=== PATIENT | male | born 1955 | race Caucasian/White ===

== ENCOUNTER 2017-07-22 18:40 | Inpatient (IN) ==
[2017-07-22] MEDS ORDERED: Ipratropium/Albuterol Neb 3 ML IH ONE (18:48)
[2017-07-22] MEDS ORDERED: methylPREDNISolone 125 MG/2 ML VIAL IVP ONE (18:48)
--- NOTE | 2017-07-22 19:00 | Emergency Department Note ---
Disposition Clinical Impression: NSTEMI (non-ST elevated myocardial infarction) Congestive heart failure Qualifiers: Congestive heart failure type: unspecified congestive heart failure type Congestive heart failure chronicity: acute Qualified Code(s): I50.9 - Heart failure, unspecified Disposition: Admitted As Inpatient Condition: Fair Referrals: Calixto Diego MD [Primary Care Provider] - Forms: ED Satisfaction Letter General Adult HPI - General Chief complaint: ED Shortness of Breath/Dyspnea Stated complaint: TAYA Time Seen by Provider: 07/22/17 18:47 Nursing Notes Reviewed: Yes Vital Signs Reviewed: Yes Course Vital Signs Temperature 98 F 07/22/17 19:24 Pulse Rate 102 07/22/17 19:24 Respiratory Rate 16 07/22/17 19:24 Blood Pressure 154/99 07/22/17 19:24 O2 Sat by Pulse Oximetry 98 07/22/17 19:24 Temperature 98 F 07/22/17 19:24 Pulse Rate 102 07/22/17 19:24 Respiratory Rate 24 07/22/17 20:11 Blood Pressure 154/99 07/22/17 19:24 O2 Sat by Pulse Oximetry 99 07/22/17 20:11 Oxygen Delivery Oxygen Delivery Nasal Cannula Medical Decision Making - MDM Narrative Medical decision making narrative: This documentation is done with the assistance of Dragon dictation. Despite efforts to ensure accuracy, there may be inaccuracies in handle rounder operator or spelling and typographical errors. I examined this patient and my medical decision-making was reviewed with the Resident Physician. I agree with the documented findings, disposition and treatment plan as described except to the extent set forth below. Patient was seen and evaluated on arrival with EMS and Dr. Angel, I agree with his evaluation and management plan, supervised the care of the patient's stay. Patient presents today with dyspnea, medics state they arrived on scene and gave him albuterol treatment he sounded much better sets him up in the 90s. He started oxygen here still some wheezing in the bases. He denies any chest pain at this time. No calf pain no edema. I did do a chest x-ray EKG and a workup and reassess. He may need admission. He is in agreement with this plan. Chest X-Ray 07/22/17 18:48 IMPRESSION: Multifocal pneumonia versus edema. D/ / Silvia Goss MD / Silvia Goss MD Interpreting Provider: Silvia Goss MD 2000 hrs. colon with his symptoms I do not think this is pneumonia. It looks more like this is some pulmonary edema. His troponin is elevated. He denies any chest pain. His EKG compared to his last EKG which several years ago shows no acute changes but there is low voltage throughout. I am worried that he did have an ischemic episode and now has caused some pulmonary edema. I started him on aspirin and bring him into the hospital. Also start him on BiPAP to see how he tolerates that for his wheezing and pulmonary edema. He is in agreement with this plan. - Lab Data Result diagrams: 07/22/17 19:17 07/22/17 19:17 Lab Results 07/22/17 07/22/17 07/22/17 Range/Units 19:17 19:17 19:17 WBC 6.5 (4.3-11.1) K/mcL RBC 4.78 (4.19-5.50) M/mcL Hgb 14.3 (12.9-16.9) g/dL Hct 44.1 (37.5-50.1) % MCV 92.3 (83.0-100.0) fL MCH 29.9 (28.0-33.3) pg MCHC 32.4 (31.6-35.5) g/dL RDW 13.7 (11.5-14.5) % Plt Count 129 L (140-400) K/mcL MPV 9.5 (9.4-12.4) fL Immature Gran % 0.8 (0-4) % Seg Neutrophils % 67.7 % Lymphocytes % 17.4 % Monocytes % 9.4 % Eosinophils % 3.9 % Basophils % 0.8 % Neutrophils # 4.4 (1.6-8.9) K/mcL Lymphocytes # 1.1 (0.6-4.6) K/mcL Monocytes # 0.6 (0.0-1.3) K/mcL Eosinophils # 0.3 (0.0-0.6) K/mcL Basophils # 0.1 (0.0-0.2) K/mcL PT 12.9 H (9.4-12.1) Seconds INR 1.2 APTT 30.3 (26.0-36.0) Seconds D-Dimer 794 H (0-500) ng/mLFEU Sodium 134 L (136-145) mEq/L Potassium 4.1 (3.5-5.1) mEq/L Chloride 102 (98-107) mEq/L Carbon Dioxide 25 (23-29) mEq/L BUN 13 (8-23) mg/dL Creatinine 1.00 (0.70-1.30) mg/dL Est GFR ( Amer) > 60 (> 60) Est GFR (Non-Af Amer) > 60 (> 60) BUN/Creatinine Ratio 13 (6-26) Glucose 132 H (70-105) mg/dL Calculated Osmolality 280 (280-300) Lactic Acid (0.5-2.2) mmol/L Calcium 8.7 (8.6-10.3) mg/dL Troponin I (< 0.04) ng/mL B-Natriuretic Peptide (Less than 100) pg/mL 07/22/17 07/22/17 07/22/17 Range/Units 19:17 19:17 19:17 WBC (4.3-11.1) K/mcL RBC (4.19-5.50) M/mcL Hgb (12.9-16.9) g/dL Hct (37.5-50.1) % MCV (83.0-100.0) fL MCH (28.0-33.3) pg MCHC (31.6-35.5) g/dL RDW (11.5-14.5) % Plt Count (140-400) K/mcL MPV (9.4-12.4) fL Immature Gran % (0-4) % Seg Neutrophils % % Lymphocytes % % Monocytes % % Eosinophils % % Basophils % % Neutrophils # (1.6-8.9) K/mcL Lymphocytes # (0.6-4.6) K/mcL Monocytes # (0.0-1.3) K/mcL Eosinophils # (0.0-0.6) K/mcL Basophils # (0.0-0.2) K/mcL PT (9.4-12.1) Seconds INR APTT (26.0-36.0) Seconds D-Dimer (0-500) ng/mLFEU Sodium (136-145) mEq/L Potassium (3.5-5.1) mEq/L Chloride (98-107) mEq/L Carbon Dioxide (23-29) mEq/L BUN (8-23) mg/dL Creatinine (0.70-1.30) mg/dL Est GFR ( Amer) (> 60) Est GFR (Non-Af Amer) (> 60) BUN/Creatinine Ratio (6-26) Glucose (70-105) mg/dL Calculated Osmolality (280-300) Lactic Acid 1.4 (0.5-2.2) mmol/L Calcium (8.6-10.3) mg/dL Troponin I 1.35 H* (< 0.04) ng/mL B-Natriuretic Peptide 290 H (Less than 100) pg/mL
[2017-07-22 19:25] LABS: Basophils # 0.1 K/mcL (0.0-0.2); Basophils % 0.8 %; Eosinophils # 0.3 K/mcL (0.0-0.6); Eosinophils % 3.9 %; Hematocrit 44.1 % (37.5-50.1); Hemoglobin 14.3 g/dL (12.9-16.9); Immature Granulocytes % 0.8 % (0-4); Lymphocytes # 1.1 K/mcL (0.6-4.6); Lymphocytes % 17.4 %; Mean Corpuscular HGB Conc 32.4 g/dL (31.6-35.5); Mean Corpuscular Hemoglobin 29.9 pg (28.0-33.3); Mean Corpuscular Volume 92.3 fL (83.0-100.0); Mean Platelet Volume 9.5 fL (9.4-12.4); Monocytes # 0.6 K/mcL (0.0-1.3); Monocytes % 9.4 %; Neutrophils # 4.4 K/mcL (1.6-8.9); Platelet Count 129 K/mcL (140-400); Red Blood Count 4.78 M/mcL (4.19-5.50); Red Cell Distribution Width 13.7 % (11.5-14.5); Segmented Neutrophils % 67.7 %
[2017-07-22 19:32] LABS: INR 1.2; Prothrombin Time 12.9 Seconds (9.4-12.1)
[2017-07-22 19:34] LABS: Activated Partial Thrombo Time 30.3 Seconds (26.0-36.0)
[2017-07-22 19:39] LABS: BUN/Creatinine Ratio 13 (6-26); Blood Urea Nitrogen 13 mg/dL (8-23); Calcium 8.7 mg/dL (8.6-10.3); Carbon Dioxide 25 mEq/L (23-29); Chloride 102 mEq/L (98-107); Glucose 132 mg/dL (70-105); Osmolality,Calculated 280 (280-300); Potassium 4.1 mEq/L (3.5-5.1); Sodium 134 mEq/L (136-145); eGFR For African Americans > 60 (> 60); eGFR For Non-African Americans > 60 (> 60)
--- NOTE | 2017-07-22 19:48 | Emergency Department Note ---
Disposition Clinical Impression: NSTEMI (non-ST elevated myocardial infarction) Congestive heart failure Qualifiers: Congestive heart failure type: unspecified congestive heart failure type Congestive heart failure chronicity: acute Qualified Code(s): I50.9 - Heart failure, unspecified Disposition: Admitted As Inpatient Condition: Fair Referrals: Calixto Diego MD [Primary Care Provider] - Forms: ED Satisfaction Letter Time of Disposition: 20:41 SOB HPI - General Chief Complaint: ED Shortness of Breath/Dyspnea Stated Complaint: TAYA Time Seen by Provider: 07/22/17 18:47 Source: patient, EMS Mode of arrival: EMS Limitations: no limitations Nursing Notes Reviewed: Yes Vital Signs Reviewed: Yes - History of Present Illness Patient presents to the ED via EMS and was seen and evaluated in the hallway due to the bed, not being available. Patient was reportedly having shortness of breath over the last few days that is gradually worsening. Has no history of COPD, but was a former smoker for many years and quit about 10 years ago. States he is not on any maintenance medications for this. No history of coronary artery disease. States that his breathing got significantly worse today and was having exertional dyspnea. Also complaining of edema in his legs that is no worse than usual. It has been slowly increasing over time. He denies any chest pain, abdominal pain, vomiting , diaphoresis, or other concerns. He states that the breathing treatment EMS gave him helped his breathing out. He has been coughing some but no fever. No productive sputum All systems ED: reviewed and negative except as stated. Constitutional: Denies: fever Cardiovascular: Reports: dyspnea on exertion, edema. Denies: chest pain Respiratory: Reports: cough, dyspnea. Denies: sputum production Gastrointestinal: Denies: abdominal pain Neurological: Denies: headache Past Medical History - Past Medical History Attestation: Yes The following information was validated with the patient. Source: patient Physical Exam - General Limitations: no limitations General appearance: alert, in distress (resp) - Head Head exam: atraumatic, normocephalic, normal inspection - Eye Eye exam: Present: normal appearance, PERRL, EOMI - ENT ENT exam: normal exam, normal oropharynx, mucous membranes moist - Chest Chest inspection: Present: normal inspection, symmetric chest wall rise - Respiratory Respiratory exam: Present: respiratory distress (mild, but patient is very obese , he states he needs to sit up, RR improved when sat up ), other (rales). Absent: normal lung sounds bilaterally, wheezes - Cardiovascular Cardiovascular exam: Present: normal rhythm, tachycardia - Abdominal Exam Abdominal exam: Present: soft, Non-Tender. Absent: tenderness, distention, guarding, rebound, rigidity - Extremities Exam Extremities exam: Present: normal inspection, full ROM, pedal edema. Absent: tenderness - Neurological Exam Neurological exam: Present: alert, oriented X3 - Psychiatric Psychiatric exam: Present: normal affect, normal mood - Skin Skin exam: Present: warm, dry, intact, normal color Course Course Narrative: Patient presenting with shortness of breath. Concerning over CHF versus COPD. We will also get an EKG and cardiac workup. Patient will need to be admitted - Reevaluation(s) Reevaluation #1: Patient has elevated troponin and BNP. Pulmonary edema on chest x-ray. Concern that he may have infarcted recently and is now in heart failure. We will place him on BiPAP and admit to 2 N. His EKG does not have acute ischemic changes. However, we will repeat this if he develops any chest pain or change in his symptoms. ASA given. Vital Signs Temperature 98 F 07/22/17 19:24 Pulse Rate 102 07/22/17 19:24 Respiratory Rate 16 07/22/17 19:24 Blood Pressure 154/99 07/22/17 19:24 O2 Sat by Pulse Oximetry 98 07/22/17 19:24 Temperature 98 F 07/22/17 19:24 Pulse Rate 102 07/22/17 19:24 Respiratory Rate 24 07/22/17 20:11 Blood Pressure 154/99 07/22/17 19:24 O2 Sat by Pulse Oximetry 99 07/22/17 20:11 Oxygen Delivery Oxygen Delivery Nasal Cannula Shortness of Breath/Dyspnea - Lab Data Result diagrams: 07/22/17 19:17 07/22/17 19:17 Lab Results 07/22/17 07/22/17 07/22/17 Range/Units 19:17 19:17 19:17 WBC 6.5 (4.3-11.1) K/mcL RBC 4.78 (4.19-5.50) M/mcL Hgb 14.3 (12.9-16.9) g/dL Hct 44.1 (37.5-50.1) % MCV 92.3 (83.0-100.0) fL MCH 29.9 (28.0-33.3) pg MCHC 32.4 (31.6-35.5) g/dL RDW 13.7 (11.5-14.5) % Plt Count 129 L (140-400) K/mcL MPV 9.5 (9.4-12.4) fL Immature Gran % 0.8 (0-4) % Seg Neutrophils % 67.7 % Lymphocytes % 17.4 % Monocytes % 9.4 % Eosinophils % 3.9 % Basophils % 0.8 % Neutrophils # 4.4 (1.6-8.9) K/mcL Lymphocytes # 1.1 (0.6-4.6) K/mcL Monocytes # 0.6 (0.0-1.3) K/mcL Eosinophils # 0.3 (0.0-0.6) K/mcL Basophils # 0.1 (0.0-0.2) K/mcL PT 12.9 H (9.4-12.1) Seconds INR 1.2 APTT 30.3 (26.0-36.0) Seconds D-Dimer 794 H (0-500) ng/mLFEU Sodium 134 L (136-145) mEq/L Potassium 4.1 (3.5-5.1) mEq/L Chloride 102 (98-107) mEq/L Carbon Dioxide 25 (23-29) mEq/L BUN 13 (8-23) mg/dL Creatinine 1.00 (0.70-1.30) mg/dL Est GFR ( Amer) > 60 (> 60) Est GFR (Non-Af Amer) > 60 (> 60) BUN/Creatinine Ratio 13 (6-26) Glucose 132 H (70-105) mg/dL Calculated Osmolality 280 (280-300) Lactic Acid (0.5-2.2) mmol/L Calcium 8.7 (8.6-10.3) mg/dL Troponin I (< 0.04) ng/mL B-Natriuretic Peptide (Less than 100) pg/mL 07/22/17 07/22/17 07/22/17 Range/Units 19:17 19:17 19:17 WBC (4.3-11.1) K/mcL RBC (4.19-5.50) M/mcL Hgb (12.9-16.9) g/dL Hct (37.5-50.1) % MCV (83.0-100.0) fL MCH (28.0-33.3) pg MCHC (31.6-35.5) g/dL RDW (11.5-14.5) % Plt Count (140-400) K/mcL MPV (9.4-12.4) fL Immature Gran % (0-4) % Seg Neutrophils % % Lymphocytes % % Monocytes % % Eosinophils % % Basophils % % Neutrophils # (1.6-8.9) K/mcL Lymphocytes # (0.6-4.6) K/mcL Monocytes # (0.0-1.3) K/mcL Eosinophils # (0.0-0.6) K/mcL Basophils # (0.0-0.2) K/mcL PT (9.4-12.1) Seconds INR APTT (26.0-36.0) Seconds D-Dimer (0-500) ng/mLFEU Sodium (136-145) mEq/L Potassium (3.5-5.1) mEq/L Chloride (98-107) mEq/L Carbon Dioxide (23-29) mEq/L BUN (8-23) mg/dL Creatinine (0.70-1.30) mg/dL Est GFR ( Amer) (> 60) Est GFR (Non-Af Amer) (> 60) BUN/Creatinine Ratio (6-26) Glucose (70-105) mg/dL Calculated Osmolality (280-300) Lactic Acid 1.4 (0.5-2.2) mmol/L Calcium (8.6-10.3) mg/dL Troponin I 1.35 H* (< 0.04) ng/mL B-Natriuretic Peptide 290 H (Less than 100) pg/mL S.B.A.R. - S.B.A.R. Situation: Demographics, MOA Background: Presenting Complaint, Relevant PMH, Meds, & Allergies Assessment: Vital Signs, Course and respsone to treatment, Exam Concerns, Patient/Family Expectation, Pertinant Lab Results, Outstanding Labs Recommendation: Barrier(s) to disposition, Recommendation based on pending studies, treatments, or consults S.B.A.R. Report Given to: Dr. Kacharmaine Mccabe Repor Time: 20:41
[2017-07-22] MEDS ORDERED: Aspirin 325 MG TABLET PO ONE (19:54)
[2017-07-22] MEDS ORDERED: Furosemide 40 MG/4 ML VIAL IVP ONE (22:24)
[2017-07-22] MEDS ORDERED: Nitroglycerin 25 MG/250 ML INFUS..BTL IVC SCH (23:00)
[2017-07-22] MEDS ORDERED: D5% in Water 1,000 ML IVC PRN (23:02)
[2017-07-22] MEDS ORDERED: *HR* Dextrose 50 % in Water (Syg) 50 ML SYRINGE IVP PRN (23:02)
[2017-07-22] MEDS ORDERED: Dextrose Gel 15 GM/37.5 ML TUBE PO PRN ×2 (23:02)
[2017-07-22] MEDS ORDERED: Naloxone 0.4 MG/ML INJ IVP PRN (23:04)
[2017-07-22] MEDS ORDERED: Acetaminophen 325 MG TABLET PO PRN (23:04)
[2017-07-22] MEDS ORDERED: *HR* Morphine 2 MG/ML SYRINGE IVP PRN (23:04)
[2017-07-22] MEDS ORDERED: Ondansetron 4 MG/2 ML VIAL IVP PRN (23:04)
--- NOTE | 2017-07-22 23:13 | Internal Med History&Physical ---
Date of Encounter: 07/22/17 Time of Encounter: 23:09 Assessment and Plan (1) Congestive heart failure Current visit: Yes Status: Acute - SOB for 2 days, chest x-ray acute pulmonary edema. -Was placed on BiPAP, received 80 mg IV Lasix. - Monitor I's and O's. BiPAP as needed. Qualifiers: Congestive heart failure type: unspecified congestive heart failure type Congestive heart failure chronicity: acute Qualified Code(s): I50.9 - Heart failure, unspecified (2) NSTEMI (non-ST elevated myocardial infarction) Current visit: Yes Status: Acute - Troponin 1.32, EKG Q wave in leads V1 through V6. - Received aspirins 325 mg, on nitro drip and heparin drip. - Metoprolol to control heart rate. - Cardiology consulted, planning cardiac catheter in the morning. - Admitted to ICU, NPO. (3) HTN (hypertension) Current visit: No Status: Chronic - BP elevated at ED. On nitro drip titrated to keep SBP less than 120. Qualifiers: Hypertension type: essential hypertension Qualified Code(s): I10 - Essential (primary) hypertension (4) Diabetes 1.5, managed as type 1 Current visit: No Status: Chronic - Insulin sliding scale. Internal Medicine - H&P: HPI Admitted From: Emergency Dept Plans for Post Hospital Care: Home History of present illness: Mr. Crespo is a 62 year old male with past medical history for diabetes and hypertension who presented to the ED for acute onset of shortness of breath for 2 days. Patient was reportedly having shortness of breath over the last few days that is gradually worsening. Has no history of COPD, but was a former smoker for many years and quit about 10 years ago. States he is not on any maintenance medications for this. No history of coronary artery disease. States that his breathing got significantly worse today and was having exertional dyspnea. Also complaining of edema in his legs that is worse than usual. It has been slowly increasing over time. He denies any chest pain, abdominal pain, vomiting , diaphoresis, or other concerns. He states that the breathing treatment EMS gave him helped his breathing out. He has been coughing some but no fever. No productive sputum. At the ED, he was tachycardia with heart rate 102. Labs reviewed elevated troponin at 1.32. Chest x-ray showed acute pulmonary edema. He was placed on BiPAP due to respiratory distress. He received 80 mg Lasix IV, heparin drip, and Nitro drip. Cardiology was consulted and was planning to do a cardiac catheter in the morning. He will be admitted to the ICU for further monitoring. Past Med Surg Social Fam HX - Past Medical History Medical history: diabetes, hypertension Psychiatric history: no psych history - Social History Smoking Status: Former smoker Smokeless Tobacco Status: No Alcohol use: none Drug use: none Internal Medicine - H&P: Meds 3 Allergy/AdvReac Type Severity Reaction Status Date / Time No Known Allergies Allergy Verified 07/22/17 21:06 All Systems PM: A 10-system review of systems was performed and is negative for pertinent findings except as documented above in the HPI. Review of systems: REVIEW OF SYSTEMS: CONSTITUTIONAL: No weight loss, fever, chills, weakness or fatigue. HEENT: Eyes: No visual loss, blurred vision, double vision or yellow sclerae. Ears, Nose, Throat: No hearing loss, sneezing, congestion, runny nose or sore throat. SKIN: No rash or itching. CARDIOVASCULAR: see HPI. RESPIRATORY: see HPI. GASTROINTESTINAL: No anorexia, nausea, vomiting or diarrhea. No abdominal pain or blood. GENITOURINARY: No dysuria, urgency, or frequency. NEUROLOGICAL: No headache, dizziness, syncope, paralysis, ataxia, numbness or tingling in the extremities. No change in bowel or bladder control. MUSCULOSKELETAL: No muscle, back pain, joint pain or stiffness. HEMATOLOGIC: No anemia, bleeding or bruising. LYMPHATICS: No enlarged nodes. No history of splenectomy. PSYCHIATRIC: No history of depression or anxiety. ENDOCRINOLOGIC: No reports of sweating, cold or heat intolerance. No polyuria or polydipsia. - Constitutional Vitals: Temp Pulse Resp BP Pulse Ox 98 F 102 24 154/99 99 07/22/17 19:24 07/22/17 19:24 07/22/17 20:11 07/22/17 19:24 07/22/17 20:11 Exam: PHYSICAL EXAMINATION: GENERAL APPEARANCE: The patient is alert, oriented and in no acute distress. HEENT: Head is normocephalic. The sinuses are nontender. Pupils are equal and reactive. The nares are patent. Oropharynx clear without lesions. NECK: Supple without lymphadenopathy. HEART: Regular rate and rhythm. LUNGS: diffuse bilateral crackles. ABDOMEN: Soft, nontender, nondistended with good bowel sounds heard. Inguinal area is normal. EXTREMITIES: Without cyanosis, clubbing or edema. NEUROLOGICAL: Gross nonfocal. SKIN: Warm and dry without any rash. Internal Med - H&P Results - Labs CBC & Chem 7: 07/22/17 19:17 07/22/17 19:17
[2017-07-22] MEDS ORDERED: *HR* Heparin 5,000 UNIT/ML VIAL IVP PRN (23:57)
[2017-07-23] MEDS: Heparin 25,000 UNIT/500 ML D5W 25,000 UNIT/500 ML BAG IVC SCH ×2 (00:15→15:42)
[2017-07-23 00:37] LABS: Basophils # 0.1 K/mcL (0.0-0.2); Basophils % 0.7 %; Eosinophils # 0.1 K/mcL (0.0-0.6); Eosinophils % 0.7 %; Hematocrit 46.3 % (37.5-50.1); Hemoglobin 15.2 g/dL (12.9-16.9); Immature Granulocytes % 0.8 % (0-4); Lymphocytes # 0.5 K/mcL (0.6-4.6); Lymphocytes % 6.6 %; Mean Corpuscular HGB Conc 32.8 g/dL (31.6-35.5); Mean Corpuscular Hemoglobin 30.3 pg (28.0-33.3); Mean Corpuscular Volume 92.4 fL (83.0-100.0); Mean Platelet Volume 9.8 fL (9.4-12.4); Monocytes # 0.1 K/mcL (0.0-1.3); Monocytes % 1.4 %; Neutrophils # 6.9 K/mcL (1.6-8.9); Platelet Count 149 K/mcL (140-400); Red Blood Count 5.01 M/mcL (4.19-5.50); Segmented Neutrophils % 89.8 %
[2017-07-23 00:57] LABS: Alanine Aminotransferase 17 Units/L (7-52); Albumin 3.6 g/dL (3.5-5.7); Albumin/Globulin Ratio 0.9 (1.1-2.2); Alkaline Phosphatase 73 Units/L (34-104); Aspartate Amino Transferase 22 Units/L (13-39); BUN/Creatinine Ratio 13 (6-26); Blood Urea Nitrogen 15 mg/dL (8-23); Carbon Dioxide 23 mEq/L (23-29); Chloride 98 mEq/L (98-107); Globulin 4.2 g/dL (2.4-3.5); Glucose 257 mg/dL (70-105); Osmolality,Calculated 282 (280-300); Potassium 4.8 mEq/L (3.5-5.1); Sodium 131 mEq/L (136-145); Total Protein 7.8 g/dL (6.4-8.9); eGFR For African Americans > 60 (> 60); eGFR For Non-African Americans > 60 (> 60)
[2017-07-23] MEDS: Insulin LISPRO 300 UNITS/3 ML VIAL SQ SCH ×4 (01:47→20:46)
[2017-07-23] MEDS: Metoclopramide 10 MG/2 ML VIAL IVP SCH ×2 (01:47→06:24)
[2017-07-23] MEDS ORDERED: Pantoprazole 40 MG VIAL IVPB SCH (06:30)
[2017-07-23] MEDS: *HR* Heparin 5,000 UNIT/ML VIAL IVP PRN ×2 (07:48→15:05)
[2017-07-23] MEDS ORDERED: Furosemide 40 MG/4 ML VIAL IVP ONE (07:52)
[2017-07-23] MEDS ORDERED: Furosemide 40 MG/4 ML VIAL IVP SCH (08:00)
[2017-07-23] MEDS: Aspirin Enteric Coated 81 MG Tablet PO SCH (08:03)
--- NOTE | 2017-07-23 08:09 | Cardiology Consult Note ---
<Pilo Ramirez - Last Filed: 07/23/17 08:34> Date of Encounter: 07/23/17 Time of Encounter: 08:07 Assessment and Plan (1) NSTEMI (non-ST elevated myocardial infarction) Current Visit: Yes Status: Acute Troponin elevated up to 1.34. EKG shows ST with anterior lateral [place] of undetermined age. New finding compared to last EKG in 2007. Denies chest pain. Sudden onset of dyspnea. D-dimer also elevated. Recommend CTA to r/o PE. Patient fairly immobile d/t chronic back pain. Noted to be tachycardic. Check TTE. Agree with heparin and NTG GTT. Asa, statin, and bb. Plan for possible LHC once respiratory status improves if CTA negative for PE. (2) Congestive heart failure Current Visit: Yes Status: Acute Suspected CHF. Fluid overload on exam. BNP mildly elevated. Check TTE. Give 80 mg IV lasix now. Patient reports being on two diuretics at home. Nurse to clarify home medications. Low sodium diet. Daily weights. Strict I&O. Qualifiers: Congestive heart failure type: unspecified congestive heart failure type Congestive heart failure chronicity: acute Qualified Code(s): I50.9 - Heart failure, unspecified Discussion w patient/family: The assessment and plan as outlined above was discussed with the patient and/or family members who expressed understanding and agreement. All questions were answered. Thank you for involving us in the care of your patient. Please call with any questions. History of Present Illness Consult date: 07/23/17 Requesting physician: Catia Angel Consult reason: NSTEMI Chief complaint: Dyspnea History of present illness: Mr. Crespo is a 62 year old male with a past medical history of DM type II, HTN , and morbid obesity. He presents with sudden onset of dyspnea two days ago that has progressively worsened. He admits to cough productive of clear to yellow sputum. Denies weight gain or new edema. Reports that he always has to sit up when he sleeps. Denies chest pain. Denies fever or chills. Cardiology consulted for CHF and NSTEMI. Patient denies history of CAD. Work-up revealed elevated troponin up to 1.35. CXR showed multifocal pneumonia verses pulmonary edema, BNP was 290 and d-dimer 794. He reports limited mobility due to chronic back pain. Past Med Surg Social Fam HX - Past Medical History Medical history: diabetes, hypertension Psychiatric history: no psych history - Social History Smoking Status: Former smoker Smokeless Tobacco Status: No Alcohol use: none Drug use: none Medications and Allergies 3 Allergy/AdvReac Type Severity Reaction Status Date / Time No Known Allergies Allergy Verified 07/22/17 21:06 All Systems Review: A 10-system review of systems was performed and is negative for pertinent findings except as documented above in the HPI. Physical Examination Vital Signs, Last 4 Hours Temp Pulse Resp BP Pulse Ox 07/23/17 07:55 97.5 F L 102 22 155/99 92 07/23/17 06:56 119/88 07/23/17 04:34 27 97 General: Conversant, No Apparent Distress HEENT: Atraumatic, Normocephaly, Mucus Membranes Moist Neck: No JVD, Normal carotid pulses Cardiac: Normal S1 and S2, No Murmur, Other (tachycardic) Lungs: Normal Breath Sounds, No Wheeze, Rales, Rhonchi, Other (diminished throughout, moist cough is noted.) Neuro: Alert and responsive, No focal deficits noted Abdomen: Soft, Non-Tender Skin: No rashes noted on visualized skin Musculoskeletal: No Chest Wall Tenderness Extremities: No Clubbing, No Cyanosis, Normal Pulses, Other (2+ BLE edema up to knees) Results 07/23/17 00:30 07/23/17 00:30 Lab Results 07/23/17 07/23/17 07/23/17 00:30 00:30 00:30 WBC 7.6 Hgb 15.2 Hct 46.3 Plt Count 149 APTT Sodium 131 L Potassium 4.8 Chloride 98 Carbon Dioxide 23 BUN 15 Creatinine 1.16 Glucose 257 H Calcium 9.0 Total Bilirubin 1.0 AST 22 ALT 17 Alkaline Phosphatase 73 Troponin I 0.94 H* 07/23/17 07/23/17 05:44 05:44 WBC Hgb Hct Plt Count APTT 48.1 H D Sodium Potassium Chloride Carbon Dioxide BUN Creatinine Glucose Calcium Total Bilirubin AST ALT Alkaline Phosphatase Troponin I 1.04 H* - Imaging and Cardiology Echo: pending - EKG Interpretation EKG results cardiology: personally reviewed (ST with PAC, anterior lateral [place] of undetermined age.) Consult Discharge Plan - Plan Referrals: Calixto Diego MD [Primary Care Provider] - <Shaw Matson - Last Filed: 07/23/17 22:30> Date of Encounter: 07/23/17 Time of Encounter: 19:00 - Attending Attestation I have personally performed a face to face evaluation on this patient. I have reviewed and agree with the care plan. History and Exam by me shows: 1. NSTEMI; Mild troponin elevation, new EKG changes compared to previous EKG, will need LHC/possible when able to tolerate lying flat. Echo pending. 2. Elevated D dimer, new onset shortness of breath, CTA ordered to evaluate possible PE 3. Acute Congestive heart failure, await echo to evaluate systolic vs diastolic , breathing much easier following IV lasix., pt is unable to lie flat, cannot lie past 45%, Assessment and Plan Discussion w patient/family: The assessment and plan as outlined above was discussed with the patient and/or family members who expressed understanding and agreement. All questions were answered. Thank you for involving us in the care of your patient. Please call with any questions. History of Present Illness History of present illness: Mr. Crespo is a 62 year old male All Systems Review: A 10-system review of systems was performed and is negative for pertinent findings except as documented above in the HPI. Physical Examination Vital Signs, Last 4 Hours Temp Pulse Resp BP Pulse Ox 07/23/17 21:01 19 97 07/23/17 20:50 95 07/23/17 20:00 98.1 F 95 20 118/78 95 Results 07/23/17 00:30 07/23/17 00:30 Lab Results 07/23/17 07/23/17 07/23/17 00:30 00:30 00:30 WBC 7.6 Hgb 15.2 Hct 46.3 Plt Count 149 APTT Sodium 131 L Potassium 4.8 Chloride 98 Carbon Dioxide 23 BUN 15 Creatinine 1.16 Glucose 257 H Calcium 9.0 Total Bilirubin 1.0 AST 22 ALT 17 Alkaline Phosphatase 73 Troponin I 0.94 H* 07/23/17 07/23/17 07/23/17 05:44 05:44 11:10 WBC Hgb Hct Plt Count APTT 48.1 H D Sodium Potassium Chloride Carbon Dioxide BUN Creatinine Glucose Calcium Total Bilirubin AST ALT Alkaline Phosphatase Troponin I 1.04 H* 1.17 H* 07/23/17 07/23/17 13:33 21:40 WBC Hgb Hct Plt Count APTT 42.1 H 84.7 H D Sodium Potassium Chloride Carbon Dioxide BUN Creatinine Glucose Calcium Total Bilirubin AST ALT Alkaline Phosphatase Troponin I
[2017-07-23] MEDS ORDERED: Perflutren Lipid Microsphere 1.3 ML in 0.9 % Sodium Chloride 8.7 ML IVP ONE (10:28)
[2017-07-23] MEDS ORDERED: Perflutren Lipid Microsphere 2 ML VIAL ONE (10:37)
--- NOTE | 2017-07-23 12:09 | Internal Med Progress Note ---
Date of Encounter: 07/23/17 Time of Encounter: 11:20 - Assessment and plan (1) NSTEMI (non-ST elevated myocardial infarction) Current Visit: Yes Status: Acute Assessment and plan: Acute initial NSTEMI Cont Heparin gtt Will try to wean him off the Nitro gtt Cont Metoprolol Card consulted Possible LHC today If his CTA negative for PE 2 D Echo - P (2) Congestive heart failure Current Visit: Yes Status: Acute Assessment and plan: Suspecting mostly diastolic no previous 2 D Echo to review cont aggressive diuresis with Lasix 40mg IV Q8hr strict I & O resumed other home meds Qualifiers: Congestive heart failure type: unspecified congestive heart failure type Congestive heart failure chronicity: acute Qualified Code(s): I50.9 - Heart failure, unspecified (3) Acute pulmonary edema with congestive heart failure Current Visit: Yes Status: Acute (4) Acute respiratory failure with hypoxia Current Visit: Yes Status: Acute Assessment and plan: Multi factorial with pulmonary edema , hypoventilation syndrome cont aggressive Diuresis BiPAP PRN Duoneb as FABIAN Since his D Dimer elevated, and he is mostly bed bound will check CTA of Chest, B/L LE Venous Doppler (5) Elevated d-dimer Current Visit: Yes Status: Acute (6) HTN (hypertension), malignant Current Visit: Yes Status: Acute Assessment and plan: Uncontrolled HTN Improving slowly wean him off the [employer] Metoprolol to 50 mg BID Added hydralazine IV PRN (7) DM2 (diabetes mellitus, type 2) Current Visit: Yes Status: Acute Assessment and plan: Will check HbA1C on ISS Medium now once pt starts eating..will add Levemir 20 U BID Qualifiers: Qualified Code(s): E11.9 - Type 2 diabetes mellitus without complications (8) Morbid obesity with BMI of 70 and over, adult Current Visit: Yes Status: Acute Assessment and plan: counseled to loose weight he would get benefit with Gastric bypass - Subjective Interval history: Mr. Crespo is a 62 year old male with past medical history for diabetes and hypertension who presented to the ED for acute onset of shortness of breath for 2 days. In the ED, he was tachycardic and his troponin at 1.32. Chest x-ray showed acute pulmonary edema. He was placed on BiPAP, Started on IV Lasix, heparin drip, and Nitro drip. he is feeling little better today. Denied any CP. Still has some FELISHA and LESLIE. - Constitutional Vitals: Temp Pulse Resp BP Pulse Ox 97.5 F L 102 22 155/99 92 07/23/17 07:55 07/23/17 07:55 07/23/17 07:55 07/23/17 07:55 07/23/17 07:55 General appearance: Present: A&O X 3, no acute distress, answers questions appropriately - Head Head exam: Present: atraumatic, normal inspection - Neck Neck exam general surgery: Present: supple - Respiratory Respiratory exam: Present: decreased breath sounds, rales, wheezes (moderate). Absent: respiratory distress, rhonchi - Cardiovascular Cardiovascular exam: Present: +S1, +S2, tachycardia - GI/Abdominal GI/Abdominal exam: Present: distended, normal bowel sounds, soft. Absent: rebound, rigid, tenderness - Extremities Exam Extremities exam: Present: pedal edema (2-3+). Absent: calf tenderness, tenderness - Back Exam Back exam: Absent: CVA tenderness (L), CVA tenderness (R) - Neurological Exam Neurological exam: Present: alert, oriented X3 - Psychiatric Psychiatric exam: Present: normal affect, normal mood Internal Medicine: Result - Labs CBC & Chem 7: 07/23/17 00:30 07/23/17 00:30 Labs: Short CBC 07/23/17 Range/Units 00:30 WBC 7.6 (4.3-11.1) K/mcL Hgb 15.2 (12.9-16.9) g/dL Hct 46.3 (37.5-50.1) % Plt Count 149 (140-400) K/mcL Neutrophils # 6.9 (1.6-8.9) K/mcL BMP 07/23/17 00:30 Sodium 131 L Potassium 4.8 Chloride 98 Carbon Dioxide 23 BUN 15 Creatinine 1.16 Glucose 257 H Calcium 9.0 Cardiac Enzymes 07/23/17 07/23/17 Range/Units 00:30 05:44 Troponin I 0.94 H* 1.04 H* (< 0.04) ng/mL Liver Function 07/23/17 Range/Units 00:30 Total Bilirubin 1.0 (0.3-1.0) mg/dL AST 22 (13-39) Units/L ALT 17 (7-52) Units/L Alkaline Phosphatase 73 (34-104) Units/L Albumin 3.6 (3.5-5.7) g/dL - ABG Interpretation ABG results: PT/INR, D-dimer PT 12.9 Seconds (9.4-12.1) H 07/22/17 19:17 D-Dimer 794 ng/mLFEU (0-500) H 07/22/17 19:17 Consult Discharge Plan - Plan Referrals: Calixto Diego MD [Primary Care Provider] -
[2017-07-23] MEDS: Ipratropium/Albuterol Neb 3 ML IH SCH ×2 (15:57→21:01)
[2017-07-23] MEDS: Furosemide 40 MG/4 ML VIAL IVP SCH (16:42)
[2017-07-24] MEDS: Ipratropium/Albuterol Neb 3 ML IH SCH ×7 (00:10→23:30)
[2017-07-24] MEDS: Furosemide 40 MG/4 ML VIAL IVP SCH ×3 (00:15→16:38)
[2017-07-24] MEDS: Insulin LISPRO 300 UNITS/3 ML VIAL SQ SCH ×5 (00:15→21:57)
[2017-07-24] MEDS: Heparin 25,000 UNIT/500 ML D5W 25,000 UNIT/500 ML BAG IVC SCH ×2 (01:28→12:48)
[2017-07-24 04:30] LABS: Basophils # 0.1 K/mcL (0.0-0.2); Basophils % 0.6 %; Eosinophils # 0.2 K/mcL (0.0-0.6); Eosinophils % 1.4 %; Immature Granulocytes % 0.7 % (0-4); Lymphocytes # 2.5 K/mcL (0.6-4.6); Mean Corpuscular HGB Conc 32.6 g/dL (31.6-35.5); Mean Corpuscular Hemoglobin 30.1 pg (28.0-33.3); Mean Corpuscular Volume 92.5 fL (83.0-100.0); Mean Platelet Volume 9.8 fL (9.4-12.4); Monocytes # 1.1 K/mcL (0.0-1.3); Monocytes % 7.6 %; Neutrophils # 9.9 K/mcL (1.6-8.9); Platelet Count 185 K/mcL (140-400); Red Blood Count 4.65 M/mcL (4.19-5.50); Red Cell Distribution Width 14.2 % (11.5-14.5); Segmented Neutrophils % 71.7 %
[2017-07-24 04:41] LABS: Hemoglobin A1C 8.2 %
[2017-07-24 04:49] LABS: BUN/Creatinine Ratio 23 (6-26); Blood Urea Nitrogen 29 mg/dL (8-23); Carbon Dioxide 28 mEq/L (23-29); Chloride 97 mEq/L (98-107); Chol/HDL Ratio 5.7 (0-4.9); Cholesterol 238 mg/dL (< 200); Glucose 259 mg/dL (70-105); HDL Cholesterol 42 mg/dL (40-59); LDL Cholesterol,Calculated 166 mg/dL (0-99); Magnesium 1.7 mg/dL (1.6-2.6); Osmolality,Calculated 291 (280-300); Sodium 133 mEq/L (136-145); Triglycerides 150 mg/dL (< 150); eGFR For African Americans > 60 (> 60); eGFR For Non-African Americans 57 (> 60)
[2017-07-24] MEDS: Aspirin Enteric Coated 81 MG Tablet PO SCH (08:45)
--- NOTE | 2017-07-24 09:19 | Event Note ---
Date of Encounter: 07/24/17 Time of Encounter: 09:00 - Cardiology Event Note Seen and examined earlier this AM. 24 I&O: -2L. CTA yesterday negative for PE. No events overnight. Dyspnea significantly improved since admission, can now lay flat. Troponin 1.34, 0.94, 1.04, 1.17. TTE EF 50%. Plan for [facility] with possible PCI today; alternatives, risks, and benefits discussed he is agreeable to proceed. Discussed with Dr. Méndez who agrees with plan as stated above. Further recommendations to follow.
[2017-07-24] MEDS ORDERED: *HR* Heparin 10,000 UNIT/10 ML VIAL ONE ×2 (12:01→13:55)
[2017-07-24] MEDS ORDERED: 0.9 % Sodium Chloride 1,000 ML ONE ×2 (12:01→13:18)
[2017-07-24] MEDS ORDERED: Nitroglycerin 1,000 MCG/10 ML VIAL IV ONE (12:01)
[2017-07-24] MEDS ORDERED: Verapamil 5 MG/2 ML VIAL ONE (12:24)
--- NOTE | 2017-07-24 12:49 | Pre-Sedation Evaluation ---
Pre-sedation evaluation - Pre-sedation checklist Date of procedure: 07/24/17 Procedure: [facility] Recent Vitals: Last Vital Signs Temp 97.5 F L 07/24/17 08:42 Pulse 96 07/24/17 11:17 Resp 18 07/24/17 11:32 BP 121/79 07/24/17 11:17 Pulse Ox 92 07/24/17 11:32 H&P (including ROS) documented in medical record: Yes Previous reaction to sedatives/anesthetics: No Dietary Status: NPO after Midnight Airway Assessment: Patient can open mouth completely, TMJ function normal, Micrognathia (under-bite, receding chin) absent, Neck with adequate range of motion Dentition: No loose teeth or bridges Possible difficult airway: Yes If Yes;: History of Obstructive Sleep Apnea, Morbid obesity ASA Classification *see protocol: CLASS II-Mild systemic disease Plan of Care: Pt appropriate candidate for procedure/moderate/conscious sedation , Risks/benefits of procedure/sedation discussed w/ patient/family
--- NOTE | 2017-07-24 12:49 | Internal Med Progress Note ---
Date of Encounter: 07/24/17 Time of Encounter: 12:48 - Assessment and plan (1) NSTEMI (non-ST elevated myocardial infarction) Current Visit: Yes Status: Acute Assessment and plan: Acute initial NSTEMI Cont Heparin gtt Cont Metoprolol Cardiology on board and consultation appreciated scheduled for C today (2) Acute respiratory failure with hypoxia Current Visit: Yes Status: Acute Assessment and plan: Multi factorial with pulmonary edema , hypoventilation syndrome cont aggressive Diuresis BiPAP PRN Duoneb as FABIAN CTA chest negative for PE however incidental findings of achalasia or pseudo achalasia-pt clinically asymptomatic, outpatient follow up (3) Congestive heart failure Current Visit: Yes Status: Acute Assessment and plan: Suspecting mostly diastolic no previous 2 D Echo to review cont aggressive diuresis with Lasix 40mg IV Q8hr strict I & O resumed other home meds Qualifiers: Congestive heart failure type: unspecified congestive heart failure type Congestive heart failure chronicity: acute Qualified Code(s): I50.9 - Heart failure, unspecified (4) HTN (hypertension) Current Visit: No Status: Chronic Assessment and plan: BP within acceptable range continue home meds Qualifiers: Hypertension type: essential hypertension Qualified Code(s): I10 - Essential (primary) hypertension (5) DM2 (diabetes mellitus, type 2) Current Visit: Yes Status: Acute Assessment and plan: continue sliding scale insulin algorithm adjusted levemir as per 24 hour insulin requirements HbA1C: 8.2 will closely monitor FS and BG ADA diet Qualifiers: Diabetes mellitus complication status: with unspecified complications Diabetes mellitus chcf insulin use: unspecified chcf insulin use status Qualified Code(s): E11.8 - Type 2 diabetes mellitus with unspecified complications (6) Morbid obesity with BMI of 70 and over, adult Current Visit: Yes Status: Acute (7) Acute pulmonary edema with congestive heart failure Current Visit: Yes Status: Acute (8) DVT prophylaxis Current Visit: Yes Status: Acute Assessment and plan: on heparin gtt - Subjective Interval history: Pt seen and examined at bedside. Resting in chair and saturating well on nasal cannula. Reports of not being on any home oxygen. Noted to have scattered rales. Scheduled for C later today. - Constitutional Vitals: Temp Pulse Resp BP Pulse Ox 97.5 F L 96 18 121/79 92 07/24/17 08:42 07/24/17 11:17 01/02/18 11:32 07/24/17 11:17 07/24/17 11:32 General appearance: Present: cooperative, A&O X 3, morbidly obese, pleasant, no acute distress, answers questions appropriately - Head Head exam: Present: atraumatic, normocephalic - Eye Eye exam: Present: conjuntiva pink, sclera anicteric - Respiratory Respiratory exam: Absent: respiratory distress, wheezes (scattered rales) - Cardiovascular Cardiovascular exam: Present: RRR, +S1, +S2. Absent: diastolic murmur, gallop, rubs, systolic murmur - GI/Abdominal GI/Abdominal exam: Present: normal bowel sounds, soft, no peritoneal signs. Absent: distended, tenderness - Extremities Exam Extremities exam: Present: warm, radial pulses palpable and symmetrical. Absent : calf tenderness (chronic venous stasis in b/l LE ) - Neurological Exam Neurological exam: Present: alert, oriented X3 - Psychiatric Psychiatric exam: Present: normal affect, normal mood Internal Medicine: Result - Labs CBC & Chem 7: 07/24/17 04:06 07/24/17 04:06 Labs: Short CBC 07/24/17 Range/Units 04:06 WBC 13.8 H D (4.3-11.1) K/mcL Hgb 14.0 (12.9-16.9) g/dL Hct 43.0 (37.5-50.1) % Plt Count 185 (140-400) K/mcL Neutrophils # 9.9 H (1.6-8.9) K/mcL BMP 07/24/17 04:06 Sodium 133 L Potassium 4.0 Chloride 97 L Carbon Dioxide 28 BUN 29 H Creatinine 1.28 Glucose 259 H Calcium 9.0 - ABG Interpretation ABG results: PT/INR, D-dimer PT 12.9 Seconds (9.4-12.1) H 07/22/17 19:17 D-Dimer 794 ng/mLFEU (0-500) H 07/22/17 19:17 - Impressions Impressions Echocardiogram 07/23/17 04:04 Impressions: Technically sub-optimal due to body habitus, consider ALEXUS if clinically indicated. Normal sinus rhythm. Mild left ventricular systolic dysfunction. LVEF 50%. Indeterminate diastolic function. Definity echo contrast was used, but not particularly helpful due to body habitus. . Mildly dilated left atrium. Trace tricuspid regurgitation. Findings: Study Quality * Technically sub-optimal due to body habitus, consider ALEXUS if clinically indicated. ECG Findings * Normal sinus rhythm. Left Ventricle * LVEF 50%. * Indeterminate diastolic function. * Mild global left ventricular systolic dysfunction. * Definity echo contrast was used, but not particularly helpful due to body habitus. . Right Ventricle * Normal right ventricular structure and function. Left Atrium * Mildly dilated left atrium. Right Atrium * Normal right atrial size. Aortic Valve * Trileaflet aortic valve. Mitral Valve * Normal mitral valve structure and function. Tricuspid Valve * Normal tricuspid valve structure and function. * Trace tricuspid regurgitation. Pulmonic Valve * Pulmonic valve is not well visualized. Aorta * Normally sized aortic root. Pericardium * The pericardium appears normal. Chest CTA 07/23/17 08:49 IMPRESSION: Patchy hazy ground-glass opacities bilaterally, right greater than left with small effusions and prominent mediastinal lymph nodes. Lymph nodes are likely reactive to the ongoing acute infectious or inflammatory pulmonary process. Incidental esophageal dilatation to the level of the GE junction where it then narrows. Finding may be secondary to achalasia or pseudo achalasia warranting appropriate follow-up. D/ / Lopez Shaw MD / Lopez Shaw MD Interpreting Provider: Lopez Shaw MD Consult Discharge Plan - Plan Referrals: Calixto Diego MD [Primary Care Provider] -
[2017-07-24] MEDS ORDERED: *HR* FentaNYL (PF) 250 MCG/5 ML VIAL ONE (13:14)
[2017-07-24] MEDS ORDERED: *HR* Midazolam HCl 5 MG/5 ML VIAL IVP ONE (13:14)
[2017-07-24] MEDS ORDERED: *HR* Ticagrelor 90 MG TABLET ONE (14:27)
[2017-07-24] MEDS ORDERED: Nitroglycerin 0.4 MG TAB.SUBL SL PRN (14:43)
[2017-07-24] MEDS ORDERED: 0.9 % Sodium Chloride 1,000 ML IVC SCH (14:45)
--- NOTE | 2017-07-24 14:59 | Invasive Diagnostic Lab Proc ---
Name: Wes Crespo Date of Study: 07/24/2017 Date: 1955 Ht: 67.0in Medical Record#: [id number] Age: 62 Wt: 453.05lb Gender: Male BSA: 2.86 Order #: [id number] BMI: 70.94 Physicians Procedure Physician: Risa White MD, [facility] Referring MD: Referring MD: Staff Name Position Time In Teddy Potts RT (R) Scrub 12:34 PM Carmelo Agatha RT (R) Monitor 12:34 PM Emmy Forbes RN Block Hacker 12:34 PM Indications Indication Non-Stemi Procedures Performed Procedure L HRT ARTERY/VENTRICLE ANGIO PRQ CARD SPENCER STENT W/ANGIO 1 VSL Pre-Procedure Checklist Informed consent is complete signed and on chart. H&P is on chart. ID band is on and ID verified with patient. Patient NPO for procedure The procedure was described for the patient and questions were answered. Blood Pressure: 115/91 ECG is on chart. Rhythm: NSR Plan of Care Patient will tolerate the procedure without complications. Adequate level of comfort will be maintained. Hemodynamics will remain stable Patient will recover from procedure without complications. Respiratory function will be maintained. Cardiac rhythm will remain stable. Patient temperature will be maintained. Patient and/or family have verbalized understanding of the procedure. Patient Education Chief Complaint/Reason for Test: Cardiac Cath Developmental Category: Adult (18-64 years) Developmentally Appropriate for Age: Yes Learning Barriers: None Education Needs: Procedure Education Method: Verbal Information Taught: Cardiac Cath Educational Evaluation: Able to repeat information Intravenous Access Time IV Size Location DC'd Fluid/Drip Rate Units RN 01:23 PM 20g 1 1/4" Patent On Arrival Rt Antecubital 0.9NaCl 25 ml/hr Emmy Forbes RN 01:23 PM 22g 1" Patent On Arrival Lt Arm Allergies NKA No Known Allergies Vital Signs Time BP (mmHg) HR (bpm) O2 Sat. RR (bpm) LOC 01:00 PM 115 / 91 85 92 % 19 5 = Fully awake and oriented or at pre-proc level 01:14 PM / % 5 = Fully awake and oriented or at pre-proc level 01:14 PM / % 4 = Oriented but drowsy 01:29 PM / % 4 = Oriented but drowsy 01:44 PM / % 4 = Oriented but drowsy 02:00 PM / % 4 = Oriented but drowsy 01:54 PM 133 / 88 84 95 % 22 01:59 PM 139 / 83 82 96 % 17 02:04 PM 130 / 81 81 88 % 17 02:09 PM 143 / 93 83 94 % 18 02:14 PM 138 / 75 84 95 % 17 02:19 PM 124 / 69 85 96 % 20 02:24 PM 128 / 71 83 97 % 18 02:29 PM 122 / 70 85 97 % 19 01:24 PM 153 / 90 76 97 % 20 01:29 PM 122 / 77 70 88 % 19 01:34 PM 125 / 92 79 86 % 01:40 PM 127 / 84 83 90 % 23 01:44 PM 130 / 81 80 89 % 21 01:49 PM 140 / 77 81 95 % 19 Procedural Medications Time Medication Dose Units Method Given By 01:14 PM Oxygen 6 L/min nasal cannula Emmy Forbes RN 01:25 PM Versed 2 mg Intravenous Emmy Forbes RN 01:25 PM Fentanyl 50 mcg Intravenous Emmy Forbes RN 01:26 PM Oxygen 35 % BiPAP Respiratory 01:27 PM Lidocaine 2% 1 ml Subcutaneous Risa White MD, FACC 01:28 PM Nitroglycerin 200 mcg Verapamil 2.5 mg Intraarterial Risa White MD, FACC 01:55 PM Heparin 5000 units Intravenous Emmy Forbes RN 01:56 PM Versed 1 mg Intravenous Emmy Forbes RN 01:57 PM Fentanyl 25 mcg Intravenous Emmy Forbes RN 02:05 PM Versed 1 mg Intravenous Emmy Forbes RN 02:05 PM Fentanyl 25 mcg Intravenous Emmy Forbes RN 02:19 PM Nitroglycerin 200 mcg Intracoronary Risa White MD, FACC 02:24 PM Brilinta 180 mg Orally Emmy Forbes RN ASA Classification: CLASS II- Mild systemic disease (i.e. well-controlled diabetes, hypertension, asthma, cigarette smoking) Wilder Score Preprocedure Postprocedure Activity 2- Moves 4 extremities sustained head lift Activity 2- Moves 4 extremities sustained head lift Circulation 2- SBP +/= 20 points of pre-anesthetic level Circulation 2- SBP +/= 20 points of pre-anesthetic level Consciousness 2- Awake and alert oriented x 3 Consciousness 2- Awake and alert oriented x 3 O2 Saturation 2- Able to maintain O2 satruation of 92% on room air O2 Saturation 2- Able to maintain O2 satruation of 92% on room air Respiratory 2- Able to deep breathe and cough well Respiratory 2- Able to deep breathe and cough well Total Score 10 Total Score 10 Contrast Agent: Isovue Diagnostic Contrast: 470 ml Total Contrast: 470 ml Fluoro Dose: 3480 mGy Activated Clotting Time Time Seconds to Clot 01:32 PM 181 02:12 PM 332 Procedure Log Time Note Enter By 12:19 PM CathStat 12:34 PM Teddy Potts RT (R) Position: Scrub Time in: 12:34 [email or web address] 12:34 PM Agatha Rhodes RT (R) Position: Monitor Time in: :34 12:34 PM Emmy Forbes RN Position: Block Hacker Time in: :34 12:35 PM Patient charges- Angio tray pack, Navilyst 3mm J, Pulse Oximetry and ACIST tubing and transducer dspell 12:35 PM IV Supplies used: J loop Angio Cath. 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 well-controlled diabetes, hypertension, asthma, cigarette smoking) :10 PM Meet and greet completed : PM Sign in performed according to hospital policy. :10 PM Procedure start 13:10 14 PM Time: 13:14 Oxygen on at 6 L/min per nasal cannula by Emmy Forbes RN PM Time: 13:14 Patient comfortable and pain free: Yes PM Time: 13:14LOC: 5 = Fully awake and oriented or at pre-proc level 21 PM Clinical Presentation: Non-STEMI PM Case Start :23 PM Time out performed according to hospital policy PM Vitals capture started with the following parameters, Patient=Adult, Interval=5 min, Initial Ychjsust=436 mmHg, Deflation Rate=5 mmHg, Cuff placed on Left Arm :24 PM HR=76 bpm, JAFJ=441/90 mmhg, SpO2=97.0 %, Resp=20 B/min, Comment=NSR : PM Time: 13:25 Versed 2 mg Intravenous Given by Emmy Forbes RN PM Time: 13: Fentanyl 50 mcg Intravenous Given by Emmy Forbes RN PM Time: 13: Oxygen on at 35 % per BiPAP by Respiratory PM Time: : 1.0 ml Lidocaine 2% to right radial Subcutaneous Given by Risa White MD, [facility] PM Access obtained by percutaneous puncture. 6Fr 10cm Terumo Glidesheath sheath placed in right Radial artery. [id number] Time: : Patient given , 200 mcg Nitroglycerin, and 2.5 mg Verapamil Intraarterial by Risa White MD, [facility]. This is given to reduce risk of vessel spasm and thrombosis. PM ACT drawn Time: 13:14 Patient comfortable and pain free: Yes PM HR=70 bpm, BBXU=728/77 mmhg, SpO2=88.0 %, Resp=19 B/min, Comment=NSR PM Time: 13:14LOC: 4 = Oriented but drowsy PM 5Fr FR 5 catheter inserted over the wire [facility] PM 0.035 260cm Navilyst 3mmJ wire [id number] PM Pressure channel 2 zero failed. :32 PM RCA angiography performed in multiple views. PM At 13:32 the ACT was 181 seconds. :32 PM Recorded Pressure: Ao, HR=75, Condition=Condition 1 (Aorta) Ao 74/46/59 01:32 PM Recorded Pressure: Ao, HR=72, Condition=Condition 1 (Aorta) Ao 103/82/93 01:34 PM HR=79 bpm, YVCS=341/92 mmhg, SpO2=86.0 %, Comment=NSR :35 PM Catheter removed 35 PM 5Fr FL 3.5 catheter inserted over the wire [facility] dspellman 01:36 PM Lesion found in Right PDA. Pre Stenosis: 75 Pre SHIELA Flow: 3: Complete and Brisk Flow/Perfusion dspellman 01:37 PM Recorded Pressure: Ao, HR=85, Condition=Condition 1 (Aorta) Ao 109/87/98 01:40 PM HR=83 bpm, OUSB=389/84 mmhg, SpO2=90.0 %, Resp=23 B/min, Comment=NSR 01:42 PM Catheter removed dspellman 01:43 PM 5Fr TIG catheter inserted over the wire DN dspellman 01:43 PM Recorded Pressure: Ao, HR=75, Condition=Condition 1 (Aorta) Ao 108/80/95 01:44 PM HR=80 bpm, GXUL=185/81 mmhg, SpO2=89.0 %, Resp=21 B/min, Comment=NSR 01:44 PM Time: 13:29 Patient comfortable and pain free: Yes dspellman :44 PM Time: 13:29LOC: 4 = Oriented but drowsy dspellman 01:46 PM Pressures recorded dspellman 01:46 PM Recorded Pressure: Ao, HR=81, Condition=Condition 1 (Aorta) Ao 107/83/95 01:46 PM Recorded Pressure: LV, Ao, HR=83, Condition=Condition 1 (Left Ventricle) LV 104/37/42, (Aorta) Ao 112/82/96 01:49 PM LCA angiography performed in multiple views. dspellman 01:49 PM HR=81 bpm, TUWQ=308/77 mmhg, SpO2=95.0 %, Resp=19 B/min 01:50 PM Lesion found in Proximal LAD. Pre Stenosis: 99 Pre SHIELA Flow: 1: Slow Penetration without Perfusion dspellman 01:53 PM PCI Status Urgent dspellman 01:54 PM PCI lesion in Proximal LAD. dspellman 01:54 PM HR=84 bpm, TNQA=380/88 mmhg, SpO2=95.0 %, Resp=22 B/min, Comment=NSR 01:54 PM Inflation device was opened. dspellman 01:55 PM Time: 13:55 Heparin 5000 units Intravenous Given by Emmy Forbes RN dspellman 01:56 PM 6Fr CLS 3.5 Runway guide catheter was used to cannulate the PCI vessel successfully. reused? No dspellman 01:57 PM Time: 13:56 Versed 1 mg Intravenous [facility] 01:57 PM Time: 13:57 Fentanyl 25 mcg Intravenous Given [facility] 01:58 PM Recorded Pressure: Ao, HR=83, Condition=Condition 1 (Aorta) Ao 92/62/77 01:59 PM HR=82 bpm, HIXO=331/83 mmhg, SpO2=96.0 %, Resp=17 B/min 02:00 PM Time: 13:44LOC: 4 = Oriented but drowsy [facility] 02[facility]00 PM Time: 13:44 Patient comfortable and pain free: Yes [facility] 02[facility]00 PM Guide catheter removed intact. Unable to engage catheter [facility] 02:01 PM 6Fr EBU 3.0 Medtronic guide catheter was used to cannulate the PCI vessel successfully. reused? No [facility] 02:04 PM HR=81 bpm, CYFJ=229/81 mmhg, SpO2=88.0 %, Resp=17 B/min, Comment=NSR 02:05 PM .014 Prowater 190cm guide wire across target lesion- successful. reused? No [facility] 02:05 PM Time: 14:05 Versed 1 mg Intravenous Given by Emmy Forbes RN dspnory 02:05 PM Time: 14:05 Fentanyl 25 mcg Intravenous Given by Emmy Forbes RN [facility] 02:06 PM 2.5 mm x 12 mm Emerge Monorail balloon across target lesion- successful. reused? No [facility] 02:07 PM ACT drawn dspell 02:09 PM Balloon inflated @ 8 randy for 20 seconds dspell 02:09 PM HR=83 bpm, TFKH=529/93 mmhg, SpO2=94.0 %, Resp=18 B/min, Comment=NSR 02:09 PM Balloon inflated @ 8 randy for 20 seconds dspell 02:10 PM Balloon inflated @ 10 randy for 20 seconds dspell 02:12 PM Balloon catheter removed intact. 02:13 PM At 14:12 the ACT was 332 seconds. dsp 02:14 PM 3.0mm x 32mm Synergy drug-eluting stent across target lesion- successful Lot [facility][id number] [facility] 02:14 PM HR=84 bpm, JMLJ=988/75 mmhg, SpO2=95.0 %, Resp=17 B/min, Comment=NSR 02:15 PM Time: 14:00 Patient comfortable and pain free: Yes :15 PM Time: 14:00LOC: 4 = Oriented but drowsy dsp 02:16 PM Stent deployed @ 12 randy for 30 seconds dsp 02:17 PM Stent balloon reinflated @ 16 randy for 20 seconds dsp 02:17 PM Recorded Pressure: Ao, HR=85, Condition=Condition 1 (Aorta) Ao 111/85/98 02:19 PM Time: 14:19 Nitroglycerin 200 mcg Intracoronary Given by Risa White MD, FAC 02:19 PM HR=85 bpm, RCPI=800/69 mmhg, SpO2=96.0 %, Resp=20 B/min, Comment=NSR 02:21 PM Stent delivery system removed intact. 02:21 PM Guide catheter removed intact. 02:22 PM Guide wire removed intact. :22 PM Procedure completed at 14:22 :23 PM Sign out completed: Radiation Dose 3480.40 mGy Fluoro Time: 23.3 Isovue 370 - 200ml contrast 470 ml given by Risa White MD, [facility]. Complications: NoneCardiac Rehab Consult needed: YesConfirmed administered medications: Yes :24 PM HR=83 bpm, MNCT=676/71 mmhg, SpO2=97.0 %, Resp=18 B/min, Comment=NSR 02:25 PM Time: 14:24 Brilinta 180 mg Orally Given by Emmy Forbes RN :26 PM Arterial sheath pulled, Vasc Band closure device used and was Successful S/N. : PM 18 ml air in Vasc Band. 02:26 PM Estimated Blood Loss: minimal 02:26 PM Post ECG NSR :26 PM Post Blood Pressure 128/71 dsp 02:27 PM 14:27 Post Pulses Rt Radial 1+ 02:28 PM Information taught Cardiac Cath, PCI, and Vasc Band 02:29 PM HR=85 bpm, JKOA=130/70 mmhg, SpO2=97 %, Resp=19 B/min 02:31 PM Education needs Procedure and Plan of Care : PM Time: 14:15 Patient comfortable and pain free: Yes ell:33 PM Learning barriers :None :33 PM Education Methods Verbal :33 PM Education evaluation Able to repeat information :33 PM Site status No bleeding/hematoma - Rt Wrist as reported by Teddy Potts RT (R) at 14:33 :39 PM Report given to Mehran SHERMAN Pt taken to E Room #22. 14:37 :39 PM Plavix, Effient or Brilinta given Yes :39 PM Delay to floor No dspell:39 PM Patient out of room: 14:39 ell:40 PM Family placed in No family present. :40 PM Complications: None :40 PM Fluoro Time: 23.3 :40 PM Isovue 370 - 200ml contrast 470 ml given by Risa [facility] MD, [facility]. :40 PM Radiation Dose 3480.40 mGy :46 PM Time: 14:31 Patient comfortable and pain free: Yes ell:46 PM Lesion found in Proximal Circumflex. Pre Stenosis: 30 Pre SHIELA Flow: dspellman 02:47 PM Lesion found in Mid Circumflex. Pre Stenosis: 30 Pre SHIELA Flow: dspellman 02:47 PM Lesion found in Proximal RCA. Pre Stenosis: 30 Pre SHIELA Flow: dspellman 02:47 PM Lesion found in Mid RCA. Pre Stenosis: 40 Pre SHIELA Flow: dspellman 02:47 PM Lesion found in Distal RCA. Pre Stenosis: 50 Pre SHIELA Flow: dspellman 02:48 PM Lesion found in RPAV. Pre Stenosis: 80 Pre SHIELA Flow: dspellman 02:48 PM Proximal Left Anterior Descending Coronary Artery with 99% stenosis. If graft is supplying this territory, 0 % stenosis. dspellman 02:48 PM Circumflex, Obtuse Marginal, Left Posterior Descending, and Left Posterolateral Coronary Arteries with 30 % stenosis. If graft is supplying this area, 0 % stenosis dspellman 02:48 PM Right Coronary, Right Posterior Descending Arteries with Right Posterolateral and Acute Marginal branches with 50 % stenosis. If graft is supplying this area, 0 % stenosis [facility] Complications Complication None None Hemodynamics Pressures Site Systolic/A Wave Diastolic/V Wave Mean AO 74 46 59 AO 103 82 93 AO 109 87 98 AO 108 80 95 AO 107 83 95 LV 104 37 42 AO 112 82 96 AO 92 62 77 AO 111 85 98 Post Procedure Information Blood Pressure: 128/71 mmHg Rhythm: NSR Post procedural instructions were given Closure Device Time Device Success/Fail 07/24/2017 2:40:00 PM Mechanical Compression Successful Site Checks Time Location Status Staff Sheath In? Note 02:33 PM Rt Wrist No bleeding/hematoma Teddy Potts RT (R) Pulses Time Site Pre-Procedure Post-Procedure Note Bilateral DP & PT 2+ Bilateral radial 2+ 2:27:00 PM Rt Radial 2+ Updated by Agatha Rhodes, RT (R) on 07/24/2017 2:52:16 PM Agatha Rhodes RT electronically signed on 07/24/2017 2:53:00 PM with status of Final
[2017-07-24 15:31] LABS: Bilirubin,Urine Negative (Negative); Blood,Urine Trace (Negative); Clarity,Urine Cloudy (Clear); Color,Urine Yellow (Yellow); Glucose,Urine (UA) Normal (Normal); Ketones,Urine Negative (Negative); Leukocyte Esterase,Urine Moderate (Negative); Nitrite,Urine Negative (Negative); Protein,Urine Trace mg/dL (Neg-Trace); Specific Gravity,Urine > 1.030 (1.010-1.025)
[2017-07-24 15:33] LABS: Squamous Epithelial Cell,Urine Many per lpf (None-Few); WBC,Urine TNTC per hpf (0-3)
[2017-07-24 15:38] LABS: Amorphous Sediment,Urine Few (Few); Bacteria,Urine Few per hpf (None-Few); Granular Casts,Urine Few per lpf (None Seen); Hyaline Casts,Urine Few per lpf (None-Few)
--- NOTE | 2017-07-24 16:32 | Electrocardiograph Report ---
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
[2017-07-24] MEDS ORDERED: Insulin DETEMIR 100 UNIT/ML X5UNITS SQ SCH (21:00)
[2017-07-25] MEDS: Furosemide 40 MG/4 ML VIAL IVP SCH ×2 (01:09→08:04)
[2017-07-25] MEDS: Ipratropium/Albuterol Neb 3 ML IH SCH ×6 (03:49→23:24)
[2017-07-25 04:16] LABS: Basophils # 0.1 K/mcL (0.0-0.2); Basophils % 0.7 %; Eosinophils # 0.4 K/mcL (0.0-0.6); Eosinophils % 5.2 %; Hematocrit 43.6 % (37.5-50.1); Immature Granulocytes % 0.4 % (0-4); Lymphocytes # 1.5 K/mcL (0.6-4.6); Lymphocytes % 20.2 %; Mean Corpuscular HGB Conc 32.1 g/dL (31.6-35.5); Mean Corpuscular Volume 93.4 fL (83.0-100.0); Mean Platelet Volume 9.7 fL (9.4-12.4); Monocytes # 0.8 K/mcL (0.0-1.3); Monocytes % 10.4 %; Neutrophils # 4.6 K/mcL (1.6-8.9); Platelet Count 157 K/mcL (140-400); Red Blood Count 4.67 M/mcL (4.19-5.50); Red Cell Distribution Width 14.3 % (11.5-14.5); Segmented Neutrophils % 63.1 %
[2017-07-25 04:29] LABS: BUN/Creatinine Ratio 22 (6-26); Blood Urea Nitrogen 32 mg/dL (8-23); Calcium 9.1 mg/dL (8.6-10.3); Carbon Dioxide 32 mEq/L (23-29); Chloride 94 mEq/L (98-107); Glucose 229 mg/dL (70-105); Magnesium 1.8 mg/dL (1.6-2.6); Osmolality,Calculated 292 (280-300); Phosphorous 4.7 mg/dL (2.7-4.5); Potassium 3.8 mEq/L (3.5-5.1); Sodium 134 mEq/L (136-145); eGFR For African Americans > 60 (> 60); eGFR For Non-African Americans 50 (> 60)
[2017-07-25] MEDS: Aspirin Enteric Coated 81 MG Tablet PO SCH (08:03)
[2017-07-25] MEDS: Insulin LISPRO 300 UNITS/3 ML VIAL SQ SCH ×5 (08:11→20:41)
--- NOTE | 2017-07-25 11:40 | Cardiology Progress Note ---
Date of Encounter: 07/25/17 Time of Encounter: 11:00 Assessment and Plan (1) NSTEMI (non-ST elevated myocardial infarction) Current Visit: Yes Status: Acute Peak troponin 1.34 with ischemic ECG changes. LHC 07/24/17: successful PTCA/SPENCER to pLAD. TTE 07/23/17: EF 50%, mild LVDD, mildly dilated LA, trace TR Post PCI restrictions/education reviewed including importance of uninterrupted DAPT (asa + plavix) for at least 1 year--pt. verbalized understanding. Continue asa, statin, betablocker, plavix, and prn NTG tabs. Cardiac rehab consulted. Mild renal dysfunction s/p LH--will start gentle IVF at 50mL/hr x8 hours. Recheck BMP in AM. Close follow-up with [facility] in the outpatient setting, will coordinate appt. (2) Congestive heart failure Current Visit: Yes Status: Acute Suspect acute on chronic diastolic CHF exacerbation. TTE EF 50% with mild LVDD. Cumulative I&O: -4250mL. CHF guidelines reviewed including Na/fluid restriction diet. Continue betablocker and diuretic. Emphasis placed on heart healthy diet, daily exercise, and weight loss. Qualifiers: Congestive heart failure type: diastolic Congestive heart failure chronicity: acute on chronic Qualified Code(s): I50.33 - Acute on chronic diastolic (congestive) heart failure (3) HTN (hypertension) Current Visit: Yes Status: Chronic Qualifiers: Hypertension type: essential hypertension Qualified Code(s): I10 - Essential (primary) hypertension Discussion w patient/family: The assessment and plan as outlined above was discussed with the patient and/or family members who expressed understanding and agreement. All questions were answered. Thank you for involving us in the care of your patient. Please call with any questions. The patient was discussed and reviewed with Dr. Méndez. Subjective Principal diagnosis: NSTEMI Interval history: Seen and examined. No complaints upon exam today. No issues with right radial cath site. Objective Vital Signs, Last 4 Hours Pulse Resp BP Pulse Ox 07/25/17 11:00 78 20 125/68 97 General: Conversant, Other (morbidly obese) Cardiac: Reg Rate and Rhythm, Normal S1 and S2 Lungs: Normal Breath Sounds Neuro: Alert and responsive Abdomen: Soft, Other (large, obese) Skin: No rashes noted on visualized skin Musculoskeletal: No Chest Wall Tenderness Extremities: Other (large extremities, BLE) Results 07/25/17 04:05 07/25/17 04:05 Lab Results 07/25/17 07/25/17 07/25/17 04:05 04:05 04:05 WBC 7.3 Hgb 14.0 Hct 43.6 Plt Count 157 APTT 29.9 D Sodium 134 L Potassium 3.8 Chloride 94 L Carbon Dioxide 32 H BUN 32 H Creatinine 1.43 H Glucose 229 H Calcium 9.1 Magnesium 07/25/17 04:05 WBC Hgb Hct Plt Count APTT Sodium Potassium Chloride Carbon Dioxide BUN Creatinine Glucose Calcium Magnesium 1.8 Active Medications Acetaminophen (Tylenol) 650 mg PO Q6HR PRN PRN Reason: fever GREATER than 101.2 F Stop: 01/21/18 23:05 Albuterol/Ipratropium (Duoneb) 3 ml IH [id number] [facility] Stop: 01/22/18 16:01 Last Admin: 07/25/17 11:27 Dose: 3 ml Aspirin (Aspirin Ec) 81 mg PO DAILY [facility] Stop: 01/22/18 09:01 Last Admin: 07/25/17 08:03 Dose: 81 mg Atorvastatin Calcium (Lipitor) 80 mg PO HS [facility] Stop: 01/21/18 23:31 Last Admin: 07/24/17 21:57 Dose: 80 mg Clopidogrel Bisulfate (Plavix) 75 mg PO DAILY [facility] Stop: 01/24/18 09:01 Last Admin: 07/25/17 08:03 Dose: 75 mg Dextrose/Water (Dextrose 50% (Syg)) 25 ml IVP AD PRN PRN Reason: Hypoglycemia Stop: 01/21/18 23:03 Furosemide (Lasix) 40 mg IVP Q8HR [facility] Stop: 01/22/18 16:01 Last Admin: 07/25/17 08:04 Dose: 40 mg Hydralazine HCl (Hydralazine) 10 mg IVP Q6HR PRN PRN Reason: Hypertension Stop: 01/22/18 12:24 Sodium Chloride (0.9 % Sodium Chloride) 1,000 mls @ 50 mls/hr IVC .Q20H [facility] Stop: 07/25/17 20:01 Insulin Detemir (Levemir) 37 unit SQ HS [facility] Stop: 01/23/18 21:01 Last Admin: 07/24/17 22:36 Dose: 37 unit Insulin Human Lispro (Humalog) 0 units SQ HS [facility] PRN Reason: Protocol Stop: 01/23/18 21:01 Last Admin: 07/24/17 21:57 Dose: 6 units Insulin Human Lispro (Humalog) 0 units SQ TIDAC [facility] PRN Reason: Protocol Stop: 01/23/18 16:31 Last Admin: 07/25/17 08:11 Dose: 10 units Metoprolol Tartrate (Lopressor) 50 mg PO BID [facility] Stop: 01/22/18 12:25 Last Admin: 07/25/17 08:03 Dose: 50 mg Morphine Sulfate (Morphine Sulfate) 4 mg IVP Q4HR PRN PRN Reason: Moderate Pain (4-6) Stop: 01/21/18 23:05 Naloxone HCl (Narcan) 0.4 mg IVP Q2MIN PRN PRN Reason: Opioid Reversal Stop: 01/21/18 23:05 Nitroglycerin (Nitroglycerin) 0.4 mg SL Q5MIN PRN PRN Reason: Chest Pain Stop: 01/23/18 14:44 Omeprazole (Prilosec) 20 mg PO DAILY@0630 [facility] PRN Reason: Protocol Stop: 01/23/18 06:31 Last Admin: 07/25/17 06:46 Dose: 20 mg Omeprazole (Prilosec) 20 mg PO DAILY@0730 [facility] Stop: 01/25/18 07:31 Ondansetron HCl (Zofran) 4 mg IVP Q6HR PRN; Protocol PRN Reason: Nausea And Vomiting Stop: 01/21/18 23:05 - Imaging and Cardiology Echo: report reviewed Cardiac cath: report reviewed Other Results: 12 hour tele: avg HR=81 SR. No significant event noted. - EKG Interpretation EKG results cardiology: personally reviewed Consult Discharge Plan - Plan Referrals: Calixto Diego MD [Primary Care Provider] -
[2017-07-25] MEDS ORDERED: 0.9 % Sodium Chloride 1,000 ML IVC SCH (12:00)
--- NOTE | 2017-07-25 12:11 | Internal Med Progress Note ---
Date of Encounter: 07/25/17 Time of Encounter: 12:09 - Assessment and plan (1) NSTEMI (non-ST elevated myocardial infarction) Current Visit: Yes Status: Acute Assessment and plan: Acute initial NSTEMI Cardiology on board and consultation appreciated s/P LHC, with successfull PTCA/SPENCER to LAD continue DAPT continue BB (2) Acute respiratory failure with hypoxia Current Visit: Yes Status: Acute Assessment and plan: Multi factorial with pulmonary edema , hypoventilation syndrome holding lasix today to mild IGNACIO s/p contrast during LHC, will closely monitor, if develops respiratory distress, will restart lasix this evening. Pt remains O2 dependant, requiring 4L O2 nasal cannula and he is not on any home oxygen BiPAP PRN Duoneb as FABIAN CTA chest negative for PE however incidental findings of achalasia or pseudo achalasia-pt clinically asymptomatic, outpatient follow up (3) Congestive heart failure Current Visit: Yes Status: Acute Assessment and plan: Suspecting mostly diastolic no previous 2 D Echo to review holding lasix this morning dose given renal function, however given respiratory status, will resume lasix in the evening strict I & O resumed other home meds Qualifiers: Congestive heart failure type: diastolic Congestive heart failure chronicity: acute on chronic Qualified Code(s): I50.33 - Acute on chronic diastolic (congestive) heart failure (4) HTN (hypertension) Current Visit: Yes Status: Chronic Assessment and plan: BP within acceptable range continue home meds Qualifiers: Hypertension type: essential hypertension Qualified Code(s): I10 - Essential (primary) hypertension (5) DM2 (diabetes mellitus, type 2) Current Visit: Yes Status: Acute Assessment and plan: continue sliding scale insulin algorithm adjusted levemir as per 24 hour insulin requirements added humalog sq TIDAC HbA1C: 8.2 will closely monitor FS and BG ADA diet Qualifiers: Diabetes mellitus complication status: with unspecified complications Diabetes mellitus terminal manager insulin use: unspecified terminal manager insulin use status Qualified Code(s): E11.8 - Type 2 diabetes mellitus with unspecified complications (6) Morbid obesity with BMI of 70 and over, adult Current Visit: Yes Status: Acute Assessment and plan: counseled to loose weight he would get benefit with Gastric bypass (7) Acute pulmonary edema with congestive heart failure Current Visit: Yes Status: Acute (8) DVT prophylaxis Current Visit: Yes Status: Acute Assessment and plan: Heparin SQ - Subjective Interval history: Pt seen and examined at bedside. Resting in bed and denies any discomfort. s/p LHC and reported to have two vessel disease, s/p PCI with SPENCER placement in LAD. Remains O2 dependent however down to 4L NC. Noted to have mild IGNACIO likely secondary to contrast during LHC. Will hold today's lasix dose, if respiratory status worsens, will resume lasix. - Constitutional Vitals: Temp Pulse Resp BP Pulse Ox 97.5 F L 78 20 125/68 97 07/25/17 07:00 07/25/17 11:00 07/25/17 11:00 07/25/17 11:00 07/25/17 11:00 General appearance: Present: cooperative, A&O X 3, morbidly obese, pleasant, no acute distress, answers questions appropriately - Head Head exam: Present: atraumatic, normocephalic - Eye Eye exam: Present: conjuntiva pink, sclera anicteric - Respiratory Respiratory exam: Absent: respiratory distress, wheezes (bibasilar rales) - Cardiovascular Cardiovascular exam: Present: RRR, +S1, +S2. Absent: diastolic murmur, gallop, rubs, systolic murmur - GI/Abdominal GI/Abdominal exam: Present: distended (obese), normal bowel sounds, soft, no peritoneal signs. Absent: tenderness - Extremities Exam Extremities exam: Present: warm, radial pulses palpable and symmetrical (b/l chronic venous stasis in LE ). Absent: calf tenderness - Neurological Exam Neurological exam: Present: alert, oriented X3 - Psychiatric Psychiatric exam: Present: normal affect, normal mood Internal Medicine: Result - Labs CBC & Chem 7: 07/25/17 04:05 07/25/17 04:05 Labs: Short CBC 07/25/17 Range/Units 04:05 WBC 7.3 (4.3-11.1) K/mcL Hgb 14.0 (12.9-16.9) g/dL Hct 43.6 (37.5-50.1) % Plt Count 157 (140-400) K/mcL Neutrophils # 4.6 (1.6-8.9) K/mcL BMP 07/25/17 04:05 Sodium 134 L Potassium 3.8 Chloride 94 L Carbon Dioxide 32 H BUN 32 H Creatinine 1.43 H Glucose 229 H Calcium 9.1 Urine 07/24/17 Range/Units 15:15 Urine Color Yellow (Yellow) Urine Clarity Cloudy A (Clear) Urine pH 6.0 (5.0-8.0) pH Units Ur Specific [place] > 1.030 H (1.010-1.025) Urine Protein Trace (Neg-Trace) mg/dL Urine Glucose (UA) Normal (Normal) mg/dL - ABG Interpretation ABG results: PT/INR, D-dimer PT 12.9 Seconds (9.4-12.1) H 07/22/17 19:17 D-Dimer 794 ng/mLFEU (0-500) H 07/22/17 19:17 Consult Discharge Plan - Plan Referrals: Calixto Diego MD [Primary Care Provider] -
--- NOTE | 2017-07-25 16:40 | Electrocardiograph Report ---
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
[2017-07-25] MEDS: *HR* Heparin 5,000 UNIT/ML VIAL SQ SCH (17:47)
[2017-07-25] MEDS ORDERED: Insulin DETEMIR 100 UNIT/ML X5UNITS SQ SCH (21:00)
[2017-07-26] MEDS: Furosemide 40 MG/4 ML VIAL IVP SCH
[2017-07-26] MEDS: Ipratropium/Albuterol Neb 3 ML IH SCH ×6 (03:38→23:20)
[2017-07-26 03:52] LABS: Basophils # 0.1 K/mcL (0.0-0.2); Basophils % 0.7 %; Eosinophils # 0.4 K/mcL (0.0-0.6); Eosinophils % 5.5 %; Hematocrit 40.6 % (37.5-50.1); Immature Granulocytes % 0.3 % (0-4); Lymphocytes # 1.5 K/mcL (0.6-4.6); Lymphocytes % 22.1 %; Mean Corpuscular Volume 93.5 fL (83.0-100.0); Monocytes # 0.7 K/mcL (0.0-1.3); Monocytes % 10.5 %; Neutrophils # 4.1 K/mcL (1.6-8.9); Platelet Count 145 K/mcL (140-400); Red Blood Count 4.34 M/mcL (4.19-5.50); Red Cell Distribution Width 13.9 % (11.5-14.5); Segmented Neutrophils % 60.9 %
[2017-07-26 04:15] LABS: Magnesium 1.8 mg/dL (1.6-2.6); Phosphorous 5.1 mg/dL (2.7-4.5)
[2017-07-26 04:16] LABS: Potassium 3.8 mEq/L (3.5-5.1)
[2017-07-26] MEDS: *HR* Heparin 5,000 UNIT/ML VIAL SQ SCH ×2 (06:12→22:21)
[2017-07-26] MEDS: Insulin LISPRO 300 UNITS/3 ML VIAL SQ SCH ×7 (08:57→22:23)
[2017-07-26] MEDS: Aspirin Enteric Coated 81 MG Tablet PO SCH (09:01)
--- NOTE | 2017-07-26 09:05 | Cardiology Progress Note ---
Date of Encounter: 07/26/17 Time of Encounter: 09:02 Assessment and Plan (1) NSTEMI (non-ST elevated myocardial infarction) Current Visit: Yes Status: Acute Peak troponin 1.34 with ischemic ECG changes. C 07/24/17: successful PTCA/SPENCER to pLAD. TTE 07/23/17: EF 50%, mild LVDD, mildly dilated LA, trace TR. Post PCI restrictions/education reviewed including importance of uninterrupted DAPT (asa + plavix) for at least 1 year--pt. verbalized understanding. Continue asa, statin, betablocker, plavix, and prn NTG tabs. Cardiac rehab consulted. Renal dysfunction s/p [facility]--creatinine was normal on admission, 1.43 yesterday, 1.64 today. Will order IV fluids at 50mL/hr x 8 hrs. Recheck BMP in AM. Close follow-up with [facility] in the outpatient setting, will coordinate appt. (2) Congestive heart failure Current Visit: Yes Status: Acute Suspected acute on chronic diastolic CHF exacerbation on admission. No significant fluid volume overload on exam currently. TTE EF 50% with mild LVDD. Cumulative I&O: -4190mL. CHF guidelines reviewed including Na/fluid restriction diet. Continue betablocker. Stopping diuretic given IGNACIO. Emphasis placed on heart healthy diet, daily exercise, and weight loss. Qualifiers: Congestive heart failure type: diastolic Congestive heart failure chronicity: acute on chronic Qualified Code(s): I50.33 - Acute on chronic diastolic (congestive) heart failure (3) HTN (hypertension) Current Visit: Yes Status: Chronic Controlled on current meds. Qualifiers: Hypertension type: essential hypertension Qualified Code(s): I10 - Essential (primary) hypertension Discussion w patient/family: The assessment and plan as outlined above was discussed with the patient and/or family members who expressed understanding and agreement. All questions were answered. Thank you for involving us in the care of your patient. Please call with any questions. I will discuss all the above with Dr. Méndez and make changes as necessary. Subjective Principal diagnosis: NSTEMI Interval history: Pt reports dyspnea and LE edema have improved. Denies chest pain overnight. Objective Vital Signs, Last 4 Hours Temp Pulse Resp BP Pulse Ox 07/26/17 07:51 16 96 07/26/17 06:36 97.7 F 78 16 121/77 96 Vital Signs Temp Pulse Resp BP Pulse Ox 07/26/17 07:51 16 96 07/26/17 06:36 97.7 F 78 16 121/77 96 07/26/17 04:58 98.8 F 78 24 116/62 95 07/25/17 20:02 14 96 07/25/17 19:41 98.1 F 92 20 133/76 95 07/25/17 15:37 18 97 07/25/17 15:00 98.2 F 84 18 117/67 98 07/25/17 11:27 18 98 07/25/17 11:00 78 20 125/68 97 Intake and Output 07/25/17 07/26/17 07/26/17 23:59 07:59 15:59 Intake Total 240 / 240 0 / 0 Output Total 0 / 0 Balance 240 / 240 0 / 0 Intake: Oral 240 / 240 0 / 0 Output: Urine 0 / 0 Other: Meal Dinner Percent of Meal Consumed 90% # Voids 1 Weight 204.1 kg Blood Glucose* 317 212 Patient Weight 07/26/17 23:59 Weight 204.1 kg General: Conversant, No Apparent Distress HEENT: Atraumatic, Normocephaly, Mucus Membranes Moist Neck: No JVD, Normal carotid pulses Cardiac: Reg Rate and Rhythm, Normal S1 and S2, No Murmur Lungs: Other (diminished) Neuro: Alert and responsive, No focal deficits noted Abdomen: Soft, Non-Tender Skin: No rashes noted on visualized skin Musculoskeletal: No Chest Wall Tenderness Extremities: Other (nonpitting edema) Results 07/26/17 03:33 07/26/17 03:33 Lab Results 07/26/17 07/26/17 07/26/17 03:33 03:33 03:33 WBC 6.7 Hgb 13.0 Hct 40.6 Plt Count 145 Sodium 135 L Potassium 3.8 Chloride 97 L Carbon Dioxide 30 H BUN 38 H Creatinine 1.64 H Glucose 222 H Calcium 9.0 Magnesium 1.8 Short CBC 07/26/17 Range/Units 03:33 WBC 6.7 (4.3-11.1) K/mcL Hgb 13.0 (12.9-16.9) g/dL Hct 40.6 (37.5-50.1) % Plt Count 145 (140-400) K/mcL Neutrophils # 4.1 (1.6-8.9) K/mcL BMP 07/26/17 Range/Units 03:33 Sodium 135 L (136-145) mEq/L Potassium 3.8 (3.5-5.1) mEq/L Chloride 97 L (98-107) mEq/L Carbon Dioxide 30 H (23-29) mEq/L BUN 38 H (8-23) mg/dL Creatinine 1.64 H (0.70-1.30) mg/dL Glucose 222 H (70-105) mg/dL Calcium 9.0 (8.6-10.3) mg/dL Active Medications Acetaminophen (Tylenol) 650 mg PO Q6HR PRN PRN Reason: fever GREATER than 101.2 F Stop: 01/21/18 23:05 Albuterol/Ipratropium (Duoneb) 3 ml IH [id number] FABIAN Stop: 01/22/18 16:01 Last Admin: 07/26/17 07:51 Dose: 3 ml Aspirin (Aspirin Ec) 81 mg PO DAILY FABIAN Stop: 01/22/18 09:01 Last Admin: 07/25/17 08:03 Dose: 81 mg Atorvastatin Calcium (Lipitor) 80 mg PO HS [facility] Stop: 01/21/18 23:31 Last Admin: 07/25/17 20:40 Dose: 80 mg Clopidogrel Bisulfate (Plavix) 75 mg PO DAILY FABIAN Stop: 01/24/18 09:01 Last Admin: 07/25/17 08:03 Dose: 75 mg Dextrose/Water (Dextrose 50% (Syg)) 25 ml IVP AD PRN PRN Reason: Hypoglycemia Stop: 01/21/18 23:03 Glucagon (Glucagen) 1 mg IM ONCE PRN PRN Reason: Hypoglycemia Stop: 01/21/18 23:03 Glucose (Gluctose) 15 gm PO ONCE PRN PRN Reason: Hypoglycemia Stop: 01/21/18 23:03 Glucose (Gluctose) 30 gm PO ONCE PRN PRN Reason: Hypoglycemia Stop: 01/21/18 23:03 Heparin Sodium (Porcine) (Heparin) 5,000 unit SQ Q12HCO FABIAN Stop: 01/24/18 18:01 Last Admin: 07/26/17 06:12 Dose: 5,000 unit Hydralazine HCl (Hydralazine) 10 mg IVP Q6HR PRN PRN Reason: Hypertension Stop: 01/22/18 12:24 Dextrose (Dextrose 5%) 1,000 mls @ 100 mls/hr IVC .Q10H PRN PRN Reason: HYPOGLYCEMIA Stop: 01/21/18 23:03 Insulin Detemir (Levemir) 57 unit SQ HS [facility] Stop: 01/24/18 21:01 Last Admin: 07/25/17 20:40 Dose: 57 unit Insulin Human Lispro (Humalog) 0 units SQ HS FABIAN PRN Reason: Protocol Stop: 01/23/18 21:01 Last Admin: 07/25/17 20:41 Dose: 7 units Insulin Human Lispro (Humalog) 0 units SQ TIDAC [facility] PRN Reason: Protocol Stop: 01/23/18 16:31 Last Admin: 07/25/17 17:46 Dose: 10 units Insulin Human Lispro (Humalog) 7 units SQ TIDAC [facility] Stop: 01/24/18 16:31 Last Admin: 07/25/17 17:46 Dose: 7 units Metoprolol Tartrate (Lopressor) 50 mg PO BID [facility] Stop: 01/22/18 12:25 Last Admin: 07/25/17 20:40 Dose: 50 mg Morphine Sulfate (Morphine Sulfate) 4 mg IVP Q4HR PRN PRN Reason: Moderate Pain (4-6) Stop: 01/21/18 23:05 Naloxone HCl (Narcan) 0.4 mg IVP Q2MIN PRN PRN Reason: Opioid Reversal Stop: 01/21/18 23:05 Nitroglycerin (Nitroglycerin) 0.4 mg SL Q5MIN PRN PRN Reason: Chest Pain Stop: 01/23/18 14:44 Omeprazole (Prilosec) 20 mg PO DAILY@0730 [facility] Stop: 01/25/18 07:31 Ondansetron HCl (Zofran) 4 mg IVP Q6HR PRN; Protocol PRN Reason: Nausea And Vomiting Stop: 01/21/18 23:05 - Imaging and Cardiology Echo: report reviewed Cardiac cath: report reviewed Consult Discharge Plan - Plan Referrals: Calixto Diego MD [Primary Care Provider] -
[2017-07-26] MEDS ORDERED: 0.9 % Sodium Chloride 1,000 ML IVC SCH (09:15)
--- NOTE | 2017-07-26 11:02 | Nephrology Consult Note ---
Date of Encounter: 07/26/17 Time of Encounter: 10:30 Assessment and Plan (1) IGNACIO (acute kidney injury) Current Visit: Yes Status: Acute Nonoliguric IGNACIO with renal risk factors of DM, morbid obesity, OTC NSAIDs, NAHEED, Metformin and then he required diuresis for CHF/peripheral edema and pulm edema , plus he required a CTA chest and LHC. The UA on 07/24/17 revealed granular casts , which would be consistent with ATN. SCr worsening as compared to yesterday. Rec gentle IVF of 50mL/hr for just one liter. He reported that his LE edema is better than when he presented, so hopefully he can tolerate a diuretic free period for 24-48hrs. Tomorrow morning, I would recommend holding IVF to prevent him from redeveloping edema. Meanwhile continue to follow a renal protective and conservative strategy. Avoid NSAIDs, Bactrim, other nephrotoxins such as Metformin, and IV contrast if able Thank you for consulting the [facility] group. Dr. Ga will be on-call starting tomorrow at 8am. (2) Congestive heart failure Current Visit: Yes Status: Acute See above Qualifiers: Congestive heart failure type: diastolic Congestive heart failure chronicity: acute on chronic Qualified Code(s): I50.33 - Acute on chronic diastolic (congestive) heart failure (3) Peripheral edema Current Visit: Yes Status: Acute See above (4) Morbid obesity with BMI of 70 and over, adult Current Visit: Yes Status: Chronic Counseled him for >50% of the encounter regarding nutritional mgt, renal protective strategy and regarding med SE in pt's with CKD (5) DM2 (diabetes mellitus, type 2) Current Visit: Yes Status: Chronic Advised glycemic control to help avoid risks for CKD development and / or CKD progression Qualifiers: Diabetes mellitus complication status: with unspecified complications Diabetes mellitus half-way insulin use: unspecified half-way insulin use status Qualified Code(s): E11.8 - Type 2 diabetes mellitus with unspecified complications History of Present Illness - Reason for Consult Consult date: 07/26/17 Acute Kidney Injury Requesting physician: Alisa Baez - Chief Complaint IGNACIO - History of Present Illness Wes Crespo is a very friendly 62 y/o morbidly obese male with a pmh of long standing T2DM on Metformin, HTN on lisinopril, chronic peripheral edema on lasix and spironolactone who presented with an NSTEMI and increased peripheral edema. He said that he's never seen another urology teacher in the past. He did affirm some OTC NSAID use recently, but only about "6 full dose Aspirins" in the last approximate 7 days. On Jul 23, he underwent a CTA chest and then on 07/24/17 he underwent a long LHC with higher contrast burden s/p SPENCER in prox LAD and also on 07/24/17, the UA revealed +Granular casts. He was also diuresed nicely and he said that his swelling in his feet are actually better than normal for him. He did not affirm CP presently and he said that he did not have a diminished appetite or N/V/D in the last few days. Past Med Surg Social Fam HX - Past Medical History Medical history: diabetes, hypertension Psychiatric history: no psych history - Social History Smoking Status: Former smoker Smokeless Tobacco Status: No Alcohol use: none Drug use: none Medications and Allergies Aspirin Enteric Coated [Aspirin EC] 81 mg PO DAILY 07/24/17 [History] Furosemide [Lasix] 40 mg PO BID PRN 07/24/17 [History] Insulin Regular U-500 [HumuLIN R U-500] 250 - 300 unit SQ TIDWM 07/24/17 [ History] Lisinopril [Zestril] 40 mg PO DAILY 07/24/17 [History] Metformin HCl [Glucophage] 1,000 mg PO BID 07/24/17 [History] Pantoprazole Sodium [Protonix] 40 mg PO DAILY 07/24/17 [History] Potassium Chloride [Klor-Con Sprinkle] 10 meq PO DAILY 07/24/17 [History] Simvastatin [Zocor] 40 mg PO HS 07/24/17 [History] Spironolactone [Aldactone] 50 mg PO BID PRN 07/24/17 [History] 3 Allergy/AdvReac Type Severity Reaction Status Date / Time No Known Allergies Allergy Verified 07/22/17 21:06 Review of Systems All Systems: reviewed and no additional remarkable complaints except as stated Exam - Vital Signs Vital signs: Initial Vital Signs Temp Pulse Resp BP Pulse Ox 98 F 102 16 154/99 98 07/22/17 19:24 07/22/17 19:24 07/22/17 19:24 07/22/17 19:24 07/22/17 19:24 Vital Signs - Last 8 Hours Temp Pulse Resp BP Pulse Ox 07/26/17 07:51 16 96 07/26/17 06:36 97.7 F 78 16 121/77 96 07/26/17 04:58 98.8 F 78 24 116/62 95 Intake and Output 07/25/17 07/26/17 07/26/17 23:59 07:59 15:59 Intake Total 240 / 240 0 / 0 600 / 600 Output Total 0 / 0 400 / 400 Balance 240 / 240 0 / 0 200 / 200 Intake: Oral 240 / 240 0 / 0 600 / 600 Output: Urine 0 / 0 400 / 400 Other: Meal Dinner Breakfast Percent of Meal Consumed 90% 25% Stool Size Large Stool Consistency soft Stool Characteristics Normal for Patient Stool Color Brown # Voids 1 # Bowel Movements 1 Weight 204.1 kg Blood Glucose* 317 212 Patient Weight 07/26/17 23:59 Weight 204.1 kg - General Appearance General appearance: well-developed, well-nourished, appears started age, obese EENT: ATNC, PERRL, mucous membranes moist Neck: supple Respiratory: rales (bibasilar) Cardiology: edema (primarily adiposity but he did have skin induration and some pitting ankle edema bilaterally. ) Gastrointestinal: normoactive bowel sounds, no guarding, obese Integumentary: warm and dry, chronic venous stasis Neurologic: no asterixis, alert and oriented x3 Musculoskeletal: no erythema, no cyanosis Psychiatric: mood/affect appropriate, cooperative Results - Lab Results 07/26/17 03:33 07/26/17 03:33 Most recent lab results Calcium 9.0 mg/dL (8.6-10.3) 07/26/17 03:33 Phosphorus 5.1 mg/dL (2.7-4.5) H 07/26/17 03:33 Magnesium 1.8 mg/dL (1.6-2.6) 07/26/17 03:33 I reviewed the labs, meds, vitals, progress notes and imaging. Consult Discharge Plan - Plan Referrals: Calixto Diego MD [Primary Care Provider] -
--- NOTE | 2017-07-26 13:19 | Internal Med Progress Note ---
Date of Encounter: 07/26/17 Time of Encounter: 13:17 - Assessment and plan (1) IGNACIO (acute kidney injury) Current Visit: Yes Status: Acute Assessment and plan: likely secondary to contrast induce nephropathy nephrology consultation appreciated hold lasix at this time gentle IV fluids will closely monitor renal function (2) NSTEMI (non-ST elevated myocardial infarction) Current Visit: Yes Status: Acute Assessment and plan: Acute initial NSTEMI Cardiology on board and consultation appreciated s/P LHC, with successfull PTCA/SPENCER to LAD continue DAPT continue BB (3) Acute respiratory failure with hypoxia Current Visit: Yes Status: Acute Assessment and plan: Multi factorial with pulmonary edema , hypoventilation syndrome holding lasix at this time due to worsening IGNACIO O2 supplementation BiPAP PRN during the day and at bedtime Duoneb as FABIAN CTA chest negative for PE however incidental findings of achalasia or pseudo achalasia-pt clinically asymptomatic, outpatient follow up (4) Congestive heart failure Current Visit: Yes Status: Acute Assessment and plan: Suspecting mostly diastolic no previous 2 D Echo to review holding lasix this morning dose given renal function strict I & O resumed other home meds Qualifiers: Congestive heart failure type: diastolic Congestive heart failure chronicity: acute on chronic Qualified Code(s): I50.33 - Acute on chronic diastolic (congestive) heart failure (5) HTN (hypertension) Current Visit: Yes Status: Chronic Assessment and plan: BP within acceptable range continue home meds Qualifiers: Hypertension type: essential hypertension Qualified Code(s): I10 - Essential (primary) hypertension (6) DM2 (diabetes mellitus, type 2) Current Visit: Yes Status: Chronic Assessment and plan: continue sliding scale insulin algorithm adjusted levemir as per 24 hour insulin requirements humalog sq TIDAC HbA1C: 8.2 will closely monitor FS and BG ADA diet Qualifiers: Diabetes mellitus complication status: with unspecified complications Diabetes mellitus fpc insulin use: unspecified fpc insulin use status Qualified Code(s): E11.8 - Type 2 diabetes mellitus with unspecified complications (7) Morbid obesity with BMI of 70 and over, adult Current Visit: Yes Status: Acute (8) Acute pulmonary edema with congestive heart failure Current Visit: Yes Status: Acute (9) DVT prophylaxis Current Visit: Yes Status: Acute Assessment and plan: Heparin SQ - Subjective Interval history: Pt seen and examined at bedside. Reports of feeling better compared to previous day. Down to 3L NC. NOted to have worsening of renal function due to which nephrology was consulted. As per mud jack nozzleman, pt received double the contrast dose during his LHC due to it being a difficult intervention. Pt refused last night's dose of lasix. - Constitutional Vitals: Temp Pulse Resp BP Pulse Ox 97.8 F 76 17 135/83 97 07/26/17 11:33 07/26/17 11:33 07/26/17 11:33 07/26/17 11:07/26/17 11:33 General appearance: Present: cooperative, A&O X 3, morbidly obese, pleasant, no acute distress, answers questions appropriately - Head Head exam: Present: atraumatic, normocephalic - Eye Eye exam: Present: conjuntiva pink, sclera anicteric - Respiratory Respiratory exam: Absent: respiratory distress, wheezes (scattered rales ) - Cardiovascular Cardiovascular exam: Present: RRR, +S1, +S2. Absent: diastolic murmur, gallop, rubs, systolic murmur - GI/Abdominal GI/Abdominal exam: Present: normal bowel sounds, soft, no peritoneal signs. Absent: distended, tenderness - Extremities Exam Extremities exam: Present: warm, radial pulses palpable and symmetrical. Absent : calf tenderness, cyanotic, pedal edema Additional comments: b/l chronic venous stasis in lower extremities - Neurological Exam Neurological exam: Present: alert, oriented X3 - Psychiatric Psychiatric exam: Present: normal affect, normal mood Internal Medicine: Result - Labs CBC & Chem 7: 07/26/17 03:33 07/26/17 03:33 Labs: Short CBC 07/26/17 Range/Units 03:33 WBC 6.7 (4.3-11.1) K/mcL Hgb 13.0 (12.9-16.9) g/dL Hct 40.6 (37.5-50.1) % Plt Count 145 (140-400) K/mcL Neutrophils # 4.1 (1.6-8.9) K/mcL BMP 07/26/17 03:33 Sodium 135 L Potassium 3.8 Chloride 97 L Carbon Dioxide 30 H BUN 38 H Creatinine 1.64 H Glucose 222 H Calcium 9.0 - ABG Interpretation ABG results: PT/INR, D-dimer PT 12.9 Seconds (9.4-12.1) H 07/22/17 19:17 D-Dimer 794 ng/mLFEU (0-500) H 07/22/17 19:17 Consult Discharge Plan - Plan Referrals: Calixto Diego MD [Primary Care Provider] -
[2017-07-26] MEDS ORDERED: Insulin DETEMIR 100 UNIT/ML X5UNITS SQ ONE (14:47)
[2017-07-26] MEDS: Insulin DETEMIR 100 UNIT/ML X5UNITS SQ SCH (22:21)
[2017-07-27] MEDS: Ipratropium/Albuterol Neb 3 ML IH SCH ×7 (03:46→23:47)
[2017-07-27 04:55] LABS: Protein/Creatinine Ratio,Urine 0.42 mg/mg (0.00-0.20)
[2017-07-27] MEDS: *HR* Heparin 5,000 UNIT/ML VIAL SQ SCH ×2 (06:00→17:28)
[2017-07-27 07:59] LABS: Calcium 9.2 mg/dL (8.6-10.3); Magnesium 1.9 mg/dL (1.6-2.6); Phosphorous 3.9 mg/dL (2.7-4.5)
[2017-07-27] MEDS: Insulin LISPRO 300 UNITS/3 ML VIAL SQ SCH ×7 (08:23→22:56)
[2017-07-27] MEDS: Aspirin Enteric Coated 81 MG Tablet PO SCH (08:24)
[2017-07-27] MEDS: Insulin DETEMIR 100 UNIT/ML X5UNITS SQ SCH ×2 (08:24→22:56)
[2017-07-27 08:34] LABS: Basophils # 0.1 K/mcL (0.0-0.2); Basophils % 0.7 %; Eosinophils # 0.4 K/mcL (0.0-0.6); Eosinophils % 4.9 %; Hematocrit 41.1 % (37.5-50.1); Hemoglobin 13.6 g/dL (12.9-16.9); Immature Granulocytes % 0.6 % (0-4); Lymphocytes # 1.6 K/mcL (0.6-4.6); Lymphocytes % 22.4 %; Mean Corpuscular HGB Conc 33.1 g/dL (31.6-35.5); Mean Corpuscular Hemoglobin 30.2 pg (28.0-33.3); Mean Corpuscular Volume 91.3 fL (83.0-100.0); Mean Platelet Volume 9.9 fL (9.4-12.4); Monocytes # 0.6 K/mcL (0.0-1.3); Monocytes % 8.8 %; Neutrophils # 4.5 K/mcL (1.6-8.9); Platelet Count 141 K/mcL (140-400); Red Cell Distribution Width 13.8 % (11.5-14.5); Segmented Neutrophils % 62.6 %
--- NOTE | 2017-07-27 10:14 | Cardiology Progress Note ---
Date of Encounter: 07/27/17 Time of Encounter: 09:00 Assessment and Plan (1) NSTEMI (non-ST elevated myocardial infarction) Current Visit: Yes Status: Acute Per cardiology: -Peak troponin 1.34 with ischemic ECG changes. -LHC 07/24/17: successful PTCA/SPENCER to pLAD. -TTE 07/23/17: EF 50%, mild LVDD, mildly dilated LA, trace TR. -Post PCI restrictions/education reviewed including importance of uninterrupted DAPT (asa + plavix) for at least 1 year--pt. verbalized understanding. -Continue asa, statin, betablocker, plavix, and prn NTG tabs. Cardiac rehab consulted. -Renal dysfunction s/p [facility]--creatinine was normal on admission, 1.4, 1.64 x2. Nephrology consulted. -Denies chest pain. -right radial access site with bruising noted, no hematoma. No pain at access site or issues using right wrist. Right radial access site management education reviewed with patient. -Cardiology will sign off. Close follow-up with [facility] in the outpatient setting, will coordinate appt. (2) IGNACIO (acute kidney injury) Current Visit: Yes Status: Acute Per cardiology: -Creatinine normal on admission. -Today 1.64. -IGNACIO suspected to be multifactoral. -Nephrology following. -Management per primary and nephrology services. (3) Congestive heart failure Current Visit: Yes Status: Acute Per cardiology: -Suspected acute on chronic diastolic CHF exacerbation on admission. No significant fluid volume overload on exam currently. -TTE EF 50% with mild LVDD. -Cumulative I&O: -3000mL. -CHF guidelines reviewed including Na/fluid restriction diet. -Continue betablocker. Stopping diuretic given IGNACIO. -Emphasis placed on heart healthy diet, daily exercise, and weight loss. -Patient educated to call cardiology for weight gain, worsening shortness of breath, or worsening edema. Qualifiers: Congestive heart failure type: diastolic Congestive heart failure chronicity: acute on chronic Qualified Code(s): I50.33 - Acute on chronic diastolic (congestive) heart failure (4) HTN (hypertension) Current Visit: Yes Status: Chronic Per cardiology: -Controlled on current meds. Qualifiers: Hypertension type: essential hypertension Qualified Code(s): I10 - Essential (primary) hypertension Discussion w patient/family: The assessment and plan as outlined above was discussed with the patient who expressed understanding and agreement. All questions were answered. Thank you for involving us in the care of your patient. Please call with any questions. Discussed and reviewed with . Subjective Principal diagnosis: NSTEMI Interval history: Patient denies chest pain. Denies pain or issues using right wrist. Objective Vital Signs, Last 4 Hours Temp Pulse Resp BP Pulse Ox 07/27/17 07:37 18 95 07/27/17 06:57 98.6 F 88 16 144/80 98 General: Conversant, No Apparent Distress HEENT: Atraumatic, Normocephaly, Mucus Membranes Moist Neck: No JVD, Normal carotid pulses Cardiac: Reg Rate and Rhythm, Normal S1 and S2, No Murmur Lungs: Normal Breath Sounds, No Wheeze, Rales, Rhonchi Neuro: Alert and responsive, No focal deficits noted Abdomen: Soft, Non-Tender Skin: No rashes noted on visualized skin, Other (Right radial access site with bruising noted, no hematoma noted. ) Musculoskeletal: No Chest Wall Tenderness Extremities: No Clubbing, No Cyanosis, No Edema, Normal Pulses Results 07/27/17 07:25 07/27/17 07:25 Lab Results Impressions Chest X-Ray 07/26/17 11:13 IMPRESSION: Overall improvement of bilateral interstitial opacities. D/ / Ivet Lynn MD / Ivet Lynn MD Interpreting Provider: Ivet Lynn MD Retroperitoneum Ultrasound 07/26/17 15:30 IMPRESSION: 1. Normal appearance of the bilateral kidneys. 2. Normal appearance of the urinary bladder. The patient did not attempt to void during the exam. D/ / Jesus Gayle MD / Jesus Gayle MD Interpreting Provider: Jesus Gayle MD Active Medications Acetaminophen (Tylenol) 650 mg PO Q6HR PRN PRN Reason: fever GREATER than 101.2 F Stop: 01/21/18 23:05 Albuterol/Ipratropium (Duoneb) 3 ml IH [id number] [facility] Stop: 01/22/18 16:01 Last Admin: 07/27/17 07:37 Dose: 3 ml Aspirin (Aspirin Ec) 81 mg PO DAILY [facility] Stop: 01/22/18 09:01 Last Admin: 07/27/17 08:24 Dose: 81 mg Atorvastatin Calcium (Lipitor) 80 mg PO HS [facility] Stop: 01/21/18 23:31 Last Admin: 07/26/17 22:20 Dose: 80 mg Clopidogrel Bisulfate (Plavix) 75 mg PO DAILY [facility] Stop: 01/24/18 09:01 Last Admin: 07/27/17 08:24 Dose: 75 mg Dextrose/Water (Dextrose 50% (Syg)) 25 ml IVP AD PRN PRN Reason: Hypoglycemia Stop: 01/21/18 23:03 Glucagon (Glucagen) 1 mg IM ONCE PRN PRN Reason: Hypoglycemia Stop: 01/21/18 23:03 Glucose (Gluctose) 15 gm PO ONCE PRN PRN Reason: Hypoglycemia Stop: 01/21/18 23:03 Glucose (Gluctose) 30 gm PO ONCE PRN PRN Reason: Hypoglycemia Stop: 01/21/18 23:03 Heparin Sodium (Porcine) (Heparin) 5,000 unit SQ Q12HCO [facility] Stop: 01/24/18 18:01 Last Admin: 07/27/17 06:00 Dose: 5,000 unit Hydralazine HCl (Hydralazine) 10 mg IVP Q6HR PRN PRN Reason: Hypertension Stop: 01/22/18 12:24 Dextrose (Dextrose 5%) 1,000 mls @ 100 mls/hr IVC .Q10H PRN PRN Reason: HYPOGLYCEMIA Stop: 01/21/18 23:03 Insulin Detemir (Levemir) 37 unit SQ BID [facility] Stop: 01/25/18 21:01 Last Admin: 07/27/17 08:24 Dose: 37 unit Insulin Human Lispro (Humalog) 0 units SQ HS [facility] PRN Reason: Protocol Stop: 01/23/18 21:01 Last Admin: 07/26/17 22:23 Dose: 5 units Insulin Human Lispro (Humalog) 0 units SQ TIDAC [facility] PRN Reason: Protocol Stop: 01/23/18 16:31 Last Admin: 07/27/17 08:23 Dose: 10 units Insulin Human Lispro (Humalog) 12 units SQ TIDAC [facility] Stop: 01/25/18 16:31 Last Admin: 07/27/17 08:24 Dose: 12 units Metoprolol Tartrate (Lopressor) 50 mg PO BID [facility] Stop: 01/22/18 12:25 Last Admin: 07/27/17 08:24 Dose: 50 mg Naloxone HCl (Narcan) 0.4 mg IVP Q2MIN PRN PRN Reason: Opioid Reversal Stop: 01/21/18 23:05 Nitroglycerin (Nitroglycerin) 0.4 mg SL Q5MIN PRN PRN Reason: Chest Pain Stop: 01/23/18 14:44 Omeprazole (Prilosec) 20 mg PO DAILY@0730 [facility] Stop: 01/25/18 07:31 Last Admin: 07/27/17 08:24 Dose: 20 mg Ondansetron HCl (Zofran) 4 mg IVP Q6HR PRN; Protocol PRN Reason: Nausea And Vomiting Stop: 01/21/18 23:05 Laboratory Tests 07/25/17 07/26/17 07/27/17 04:05 03:33 07:25 Hgb 13.6 Creatinine 1.43 H 1.64 H 07/27/17 07:25 Hgb Creatinine 1.64 H - Imaging and Cardiology Chest Xray: report reviewed Echo: report reviewed Cardiac cath: report reviewed - EKG Interpretation EKG results cardiology: other (Telemetry reviewed with average HR previous 12 hours noted to be 83, sinus rhythm.) Consult Discharge Plan - Plan Referrals: Calixto Diego MD [Primary Care Provider] -
--- NOTE | 2017-07-27 16:08 | Internal Med Progress Note ---
Date of Encounter: 07/27/17 Time of Encounter: 16:06 - Assessment and plan (1) IGNACIO (acute kidney injury) Current Visit: Yes Status: Acute Assessment and plan: likely secondary to contrast induce nephropathy nephrology consultation appreciated hold lasix at this time IV fluids discontinued renal function unchanged from previous day will closely monitor renal function (2) NSTEMI (non-ST elevated myocardial infarction) Current Visit: Yes Status: Acute Assessment and plan: Acute initial NSTEMI Cardiology on board and consultation appreciated s/P LHC, with successfull PTCA/SPENCER to LAD continue DAPT continue BB (3) Acute respiratory failure with hypoxia Current Visit: Yes Status: Acute Assessment and plan: Multi factorial with pulmonary edema , hypoventilation syndrome holding lasix at this time due to worsening IGNACIO O2 supplementation as neded currently saturating well on room air BiPAP PRN during the day and at bedtime Duoneb as FABIAN CTA chest negative for PE however incidental findings of achalasia or pseudo achalasia-pt clinically asymptomatic, outpatient follow up (4) Congestive heart failure Current Visit: Yes Status: Acute Assessment and plan: holding lasix given renal function strict I & O resumed other home meds Qualifiers: Congestive heart failure type: diastolic Congestive heart failure chronicity: acute on chronic Qualified Code(s): I50.33 - Acute on chronic diastolic (congestive) heart failure (5) HTN (hypertension) Current Visit: Yes Status: Chronic Assessment and plan: noted to be hypertensive will give Hydralazine 10mg IV q6h prn SBP>160 if continues to require IV prn hydralazine dosages, will adjust home medications continue to closely monitor BP Qualifiers: Hypertension type: essential hypertension Qualified Code(s): I10 - Essential (primary) hypertension (6) DM2 (diabetes mellitus, type 2) Current Visit: Yes Status: Chronic Assessment and plan: continue sliding scale insulin algorithm adjusted levemir as per 24 hour insulin requirements humalog sq TIDAC HbA1C: 8.2 will closely monitor FS and BG ADA diet Qualifiers: Diabetes mellitus complication status: with unspecified complications Diabetes mellitus detention insulin use: unspecified detention insulin use status Qualified Code(s): E11.8 - Type 2 diabetes mellitus with unspecified complications (7) Morbid obesity with BMI of 70 and over, adult Current Visit: Yes Status: Chronic (8) Acute pulmonary edema with congestive heart failure Current Visit: Yes Status: Acute (9) DVT prophylaxis Current Visit: Yes Status: Acute Assessment and plan: Heparin SQ (10) UTI (urinary tract infection) Current Visit: Yes Status: Acute Assessment and plan: Urine culture positive for gram positive cocci will start Doxycycline 100mg PO BID will f/u final urine culture Qualifiers: Urinary tract infection type: site unspecified Hematuria presence: without hematuria Qualified Code(s): N39.0 - Urinary tract infection, site not specified - Subjective Interval history: Pt seen and examined at bedside. Resting in bed and reports of feeling better compared to previous day. Saturating 94% on room air and states he has been off the oxygen all day. Renal function unchanged from previous day Discontinued IV fluids will continue to hold lasix for another day If continues to clinically improve, tentative d/c in am Reported to have positive urine culture for gram positive cocci. Clinically asymptomatic. Will start On PO Doxycycline - Constitutional Vitals: Temp Pulse Resp BP Pulse Ox 97.6 F 80 15 163/92 97 07/27/17 15:41 07/27/17 15:41 07/27/17 15:41 07/27/17 15:41 07/27/17 15:41 General appearance: Present: cooperative, A&O X 3, morbidly obese, pleasant, no acute distress, answers questions appropriately - Head Head exam: Present: atraumatic, normocephalic - Eye Eye exam: Present: conjuntiva pink, sclera anicteric - Respiratory Respiratory exam: Absent: rales, respiratory distress, wheezes - Cardiovascular Cardiovascular exam: Present: RRR, +S1, +S2. Absent: diastolic murmur, gallop, rubs, systolic murmur - GI/Abdominal GI/Abdominal exam: Present: distended (obese), normal bowel sounds, soft, no peritoneal signs. Absent: tenderness - Extremities Exam Extremities exam: Present: warm, radial pulses palpable and symmetrical ( chronic venous stasis in bilateral lower extremities ). Absent: calf tenderness - Neurological Exam Neurological exam: Present: alert, oriented X3 - Psychiatric Psychiatric exam: Present: normal affect, normal mood Internal Medicine: Result - Labs CBC & Chem 7: 07/27/17 07:25 07/27/17 07:25 Labs: Short CBC 07/27/17 Range/Units 07:25 WBC 7.2 (4.3-11.1) K/mcL Hgb 13.6 (12.9-16.9) g/dL Hct 41.1 (37.5-50.1) % Plt Count 141 (140-400) K/mcL Neutrophils # 4.5 (1.6-8.9) K/mcL BMP 07/27/17 07:25 Sodium 133 L Potassium 4.0 Chloride 97 L Carbon Dioxide 28 BUN 36 H Creatinine 1.64 H Glucose 240 H Calcium 9.2 - ABG Interpretation ABG results: PT/INR, D-dimer PT 12.9 Seconds (9.4-12.1) H 07/22/17 19:17 D-Dimer 794 ng/mLFEU (0-500) H 07/22/17 19:17 - Impressions Impressions Chest X-Ray 07/27/17 06:00 IMPRESSION: Stable exam. Stable cardiomegaly. Low lung volumes. Moderate pulmonary vascular congestion. D/ / Rashaun Song MD / Rashaun Song MD Interpreting Provider: Rashaun Song MD Consult Discharge Plan - Plan Referrals: David Méndez MD [Partnered Physician] - 08/01/17 1:45 pm Calixto Diego MD [Primary Care Provider] -
--- NOTE | 2017-07-27 16:19 | Nephrology Progress Note ---
Date of Encounter: 07/27/17 Time of Encounter: 15:00 - Assessment and Plan (1) IGNACIO (acute kidney injury) Status: Acute SCr stable at a plateau at 1.64, GFR 42 after exposures to contrast with CTA, LHC and also diuretics UOp acceptable at 1395 US of kidney shows asymmteric kidney sizes with R>L, not sure if significant ? JESS Continue to avoid nephrotoxins if possible, diuretics currently on hold Encouraged po fluids, IVF not needed at this time (2) Congestive heart failure Status: Acute Agree with diuretics on hold at present but will monitor closely Qualifiers: Congestive heart failure type: diastolic Congestive heart failure chronicity: acute on chronic Qualified Code(s): I50.33 - Acute on chronic diastolic (congestive) heart failure Subjective Principal diagnosis: NSTEMI Interval history: Interim events noted, pt seen and examined with no new complaints Objective - Vital Signs Vital signs: Vital Signs Temp Pulse Resp BP Pulse Ox 07/27/17 15:41 97.6 F 80 15 163/92 97 07/27/17 15:28 20 90 07/27/17 11:45 16 99 07/27/17 10:33 97.8 F 74 12 133/81 92 07/27/17 07:37 18 95 07/27/17 06:57 98.6 F 88 16 144/80 98 07/27/17 03:48 19 148/75 97 07/26/17 23:23 16 100 07/26/17 22:00 98.7 F 91 18 152/71 96 07/26/17 19:48 16 98 Intake and Output 07/27/17 07/27/17 07/27/17 07:59 15:59 23:59 Intake Total 0 / 0 720 / 720 Output Total 100 / 100 300 / 300 Balance -100 / -100 420 / 420 Intake: IV Fluids 0 / 0 0.9 % Sodium Chloride 1,000 ML 0 / 0 @ 50 mls/hr IVC .Q20H [facility] Rx#: [id number] Oral 720 / 720 Output: Urine 100 / 100 300 / 300 Other: Meal Lunch Percent of Meal Consumed 100% Blood Glucose* 242 299 306 - General Appearance General appearance: Present: obese (NAD) EENT: Present: ATNC, mucous membranes moist Neck: Present: supple Cardiology: Present: normal S1, normal S2 Gastrointestinal: Present: no tenderness, no guarding, obese Integumentary: Present: warm and dry Neurologic: Present: no focal deficit Musculoskeletal: Present: no deformities Psychiatric: Present: mood/affect appropriate, cooperative - Lab 07/28/17 03:32 07/28/17 03:32 Most recent lab results Calcium 9.2 mg/dL (8.6-10.3) 07/27/17 07:25 Phosphorus 3.9 mg/dL (2.7-4.5) 07/27/17 07:25 Magnesium 1.9 mg/dL (1.6-2.6) 07/27/17 07:25 Urine Creatinine 106 mg/dL 07/27/17 04:10 Urine Total Protein 44 mg/dL 07/27/17 04:10 Consult Discharge Plan - Plan Instructions: Viral Pneumonia (DC), Viral Pneumonia (GEN), Community-acquired Pneumonia (DC), Community-acquired Pneumonia (GEN), Bacterial Pneumonia (DC), Bacterial Pneumonia (GEN), Pneumonia, Key Maker (GEN) Additional Instructions: Please follow up with your primary care physician within five days after your discharge from the hospital. Please follow up with nephrology within two to four weeks after your discharge from the hospital. Please follow up with cardiology within one week after your discharge from the hospital. Your home medications have been changed as follows: 1. Plavix 75mg once a day has been added 2. Metoprolol 50mg twice a day has been added 3. Lasix has been changed to 40mg once a day 4. Lisinopril and Spironolactone have been discontinued due to your renal funciton. 5. Simvastatin has been discontinued and Atrovastatin once a day has been added 6. Doxycycline 100mg twice a day for 8 more days for UTI has been added. Resume all other medications as prescribed by your primary care physician. Obtain the prescribed lab work prior to your follow up with your primary care physician. Ask your primary care physician about continuation of Lisinopril and Spironolactone. these medications will be restarted once your kidney function improves. Seek medical help immediately if chest pain occurs or if you have difficulty breathing. Referrals: David Méndez MD [Partnered Physician] - 08/01/17 1:45 pm Olegario Guzman DO [Partnered Physician] - Calixto Diego MD [Primary Care Provider] - Prescriptions: Albuterol Sulfate [Albuterol Inhaler] 2 puff IH Q4HR PRN #1 [id number] PRN Reason: Shortness Of Breath/Wheezing Atorvastatin [Lipitor] 80 mg PO HS #30 tablet Clopidogrel [Plavix] 75 mg PO DAILY #30 tablet Doxycycline 100 mg PO BID #17 capsule Furosemide [Lasix] 40 mg PO DAILY #30 tab Metoprolol [Lopressor] 50 mg PO BID #60 tablet
[2017-07-27] MEDS: Doxycycline 100 MG CAPSULE PO SCH (22:57)
[2017-07-28 03:47] LABS: Platelet Count 127 K/mcL (140-400)
[2017-07-28 03:49] LABS: Basophils % 0.6 %; Eosinophils # 0.3 K/mcL (0.0-0.6); Eosinophils % 5.1 %; Hematocrit 39.5 % (37.5-50.1); Immature Granulocytes % 0.6 % (0-4); Lymphocytes # 1.4 K/mcL (0.6-4.6); Lymphocytes % 22.8 %; Mean Corpuscular HGB Conc 32.9 g/dL (31.6-35.5); Mean Corpuscular Hemoglobin 30.2 pg (28.0-33.3); Mean Corpuscular Volume 91.9 fL (83.0-100.0); Mean Platelet Volume 9.8 fL (9.4-12.4); Monocytes # 0.5 K/mcL (0.0-1.3); Monocytes % 8.2 %; Red Cell Distribution Width 13.6 % (11.5-14.5); Segmented Neutrophils % 62.7 %
[2017-07-28] MEDS: Ipratropium/Albuterol Neb 3 ML IH SCH ×3 (04:11→11:16)
[2017-07-28 05:14] LABS: BUN/Creatinine Ratio 21 (6-26); Blood Urea Nitrogen 29 mg/dL (8-23); Calcium 9.2 mg/dL (8.6-10.3); Carbon Dioxide 29 mEq/L (23-29); Chloride 99 mEq/L (98-107); Glucose 204 mg/dL (70-105); Magnesium 1.9 mg/dL (1.6-2.6); Osmolality,Calculated 290 (280-300); Phosphorous 3.4 mg/dL (2.7-4.5); Potassium 3.9 mEq/L (3.5-5.1); Sodium 134 mEq/L (136-145); eGFR For African Americans > 60 (> 60); eGFR For Non-African Americans 53 (> 60)
[2017-07-28] MEDS: *HR* Heparin 5,000 UNIT/ML VIAL SQ SCH (06:43)
[2017-07-28 07:28] VITALS: BP 149/77
[2017-07-28] MEDS: Insulin LISPRO 300 UNITS/3 ML VIAL SQ SCH ×2 (07:50→07:51)
[2017-07-28] MEDS: Aspirin Enteric Coated 81 MG Tablet PO SCH (07:51)
[2017-07-28] MEDS: Doxycycline 100 MG CAPSULE PO SCH (07:51)
--- NOTE | 2017-07-28 13:51 | Discharge Summary ---
Date of Encounter: 07/28/17 Time of Encounter: 13:42 - Discharge Diagnosis (1) IGNACIO (acute kidney injury) Priority: Secondary Status: Acute (2) NSTEMI (non-ST elevated myocardial infarction) Priority: Primary Status: Acute (3) Acute respiratory failure with hypoxia Priority: Primary Status: Acute (4) Congestive heart failure Priority: Primary Status: Acute Qualifiers: Congestive heart failure type: diastolic Congestive heart failure chronicity: acute on chronic Qualified Code(s): I50.33 - Acute on chronic diastolic (congestive) heart failure (5) HTN (hypertension) Priority: Secondary Status: Chronic Qualifiers: Hypertension type: essential hypertension Qualified Code(s): I10 - Essential (primary) hypertension (6) DM2 (diabetes mellitus, type 2) Priority: Secondary Status: Chronic Qualifiers: Diabetes mellitus complication status: with unspecified complications 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: unspecified payroll and benefits assistant insulin use status Qualified Code(s): E11.8 - Type 2 diabetes mellitus with unspecified complications (7) Morbid obesity with BMI of 70 and over, adult Priority: Secondary Status: Chronic (8) Acute pulmonary edema with congestive heart failure Priority: Primary Status: Acute (9) DVT prophylaxis Priority: Secondary Status: Acute (10) UTI (urinary tract infection) Priority: Secondary Status: Acute Qualifiers: Urinary tract infection type: site unspecified Hematuria presence: without hematuria Qualified Code(s): N39.0 - Urinary tract infection, site not specified - Discharge Medications Prescriptions: Albuterol Sulfate [Albuterol Inhaler] 2 puff IH Q4HR PRN #1 hfa.aer.ad PRN Reason: Shortness Of Breath/Wheezing Atorvastatin [Lipitor] 80 mg PO HS #30 tablet Clopidogrel [Plavix] 75 mg PO DAILY #30 tablet Doxycycline 100 mg PO BID #17 capsule Furosemide [Lasix] 40 mg PO DAILY #30 tab Metoprolol [Lopressor] 50 mg PO BID #60 tablet Home Medications: Aspirin Enteric Coated [Aspirin EC] 81 mg PO DAILY 07/24/17 [History] Insulin Regular U-500 [HumuLIN R U-500] 250 - 300 unit SQ TIDWM 07/24/17 [ History] Metformin HCl [Glucophage] 1,000 mg PO BID 07/24/17 [History] Pantoprazole Sodium [Protonix] 40 mg PO DAILY 07/24/17 [History] Potassium Chloride [Klor-Con Sprinkle] 10 meq PO DAILY 07/24/17 [History] Albuterol Sulfate [Albuterol Inhaler] 2 puff IH Q4HR PRN #1 hfa.aer.ad 07/28/17 [Rx] Atorvastatin [Lipitor] 80 mg PO HS #30 tablet 07/28/17 [Rx] Clopidogrel [Plavix] 75 mg PO DAILY #30 tablet 07/28/17 [Rx] Doxycycline 100 mg PO BID #17 capsule 07/28/17 [Rx] Furosemide [Lasix] 40 mg PO DAILY #30 tab 07/28/17 [Rx] Metoprolol [Lopressor] 50 mg PO BID #60 tablet 07/28/17 [Rx] Allergies/Adverse Reactions: 3 Allergy/AdvReac Type Severity Reaction Status Date / Time No Known Allergies Allergy Verified 07/22/17 21:06 Procedures/tests Complete & Pending: Procedures Performed prior 72 hours Category Date Time Status US retroperitoneal comp [US] Routine Exams 07/26/17 15:30 Completed Date of admission: 07/22/17 23:04 Primary care physician: Calixto Diego MD Consults: 07/24/17 09:19 Consult to Cardiac Rehabilitation-Phase1 [CONS] Routine Comment: Reason for Consult: NSTEMI Call Completed: No 07/26/17 08:21 Consult to Nephrology [CONS] Routine Consulting Provider: Kidney Lydia/MARY ANN/MARGOT/AMIE Reason for Consult: IGNACIO secondary to contrast study Being treated for CHF exacerbation Call Completed: Yes Discharging clinician: Alisa Baez Anticipated date of discharge: 07/28/17 - Patient Status Disposition: Home, Self-Care Condition: Good Functional capacity at discharge: independent ambulation Overall status at discharge: patient is back to baseline - Ambulatory Orders Ambulatory Orders: Basic Metabolic Panel [CHEM] Time Frame: 5 Days, Facility: [facility], Location: Lab - Discharge Instructions Follow Up With: David Méndez MD [Partnered Physician] - 08/01/17 1:45 pm Calixto Diego MD [Primary Care Provider] - Additional Instructions: Please follow up with your primary care physician within five days after your discharge from the hospital. Please follow up with nephrology within two to four weeks after your discharge from the hospital. Please follow up with cardiology within one week after your discharge from the hospital. Your home medications have been changed as follows: 1. Plavix 75mg once a day has been added 2. Metoprolol 50mg twice a day has been added 3. Lasix has been changed to 40mg once a day 4. Lisinopril and Spironolactone have been discontinued due to your renal funciton. 5. Simvastatin has been discontinued and Atrovastatin once a day has been added 6. Doxycycline 100mg twice a day for 8 more days for UTI has been added. Resume all other medications as prescribed by your primary care physician. Obtain the prescribed lab work prior to your follow up with your primary care physician. Ask your primary care physician about continuation of Lisinopril and Spironolactone. these medications will be restarted once your kidney function improves. Seek medical help immediately if chest pain occurs or if you have difficulty breathing. - Diet and Activity Activity: increase activity as tolerated Diet: diabetic diet, low fat, low cholesterol, low salt diet Hospital course: Mr. Crespo is a 62 year old male with PMH of DM, HTN, CHF who was admitted for acute respiratory distress secondary to CHF decompensation and NSTEMI. He was started on IV diuresis and was followed by cardiology closely. He underwent LHC and had a successful PTCA/SPENCER to LAD. His post op course was complicated by IGNACIO secondary to heavy contrast burden that he received during the LHC. He received gentle IV fluids, lasix was held, and nephrology was consulted. Pt's renal function started to improve with supportive care. He is currently saturating well on room air. Pt did not qualify for home oxygen. Pt states he is able to ambulate to the bathroom and has his helping him at home therefore he does not want physical therapy or any home health services He is medically stable for discharge, pending home O2 qualification. Pt is to follow up with nephro, cardio, and PCP after discharge. Pt demonstrates understanding of his diagnosis and agrees with the discharge care and plan. - Time Spent with Patient Total time spent providing and/or coordinating discharge services: Greater than 30 minutes - Constitutional Vitals: Temp Pulse Resp BP Pulse Ox 97.6 F 77 16 149/77 94 07/28/17 07:22 07/28/17 07:22 07/28/17 07:43 07/28/17 07:22 07/28/17 08:02 General appearance: Present: cooperative, A&O X 3, morbidly obese, pleasant, no acute distress, answers questions appropriately - Head Head exam: Present: atraumatic, normocephalic - Eye Eye exam: Present: conjuntiva pink, sclera anicteric - Respiratory Respiratory exam: Absent: respiratory distress, wheezes - Cardiovascular Cardiovascular exam: Present: RRR, +S1, +S2. Absent: diastolic murmur, gallop, rubs, systolic murmur - GI/Abdominal GI/Abdominal exam: Present: normal bowel sounds, soft, no peritoneal signs. Absent: distended, tenderness - Extremities Exam Extremities exam: Present: warm, radial pulses palpable and symmetrical (b/l LE chronic venous stasis). Absent: calf tenderness - Neurological Exam Neurological exam: Present: alert, oriented X3 - VTE Documentation of Mechanical Device: Intermittent pneumatic compression device
--- NOTE | 2017-07-28 16:08 | Nephrology Progress Note ---
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 JESS Continue to avoid nephrotoxins if possible, diuretics currently on hold Encouraged po fluids ok to discharge per primary team with repeat BMP within a week and nephrology followup in 2-4 weeks Subjective Principal diagnosis: NSTEMI Interval history: Pt seen and examined with no new complaints and eager to go home Objective - Vital Signs Vital signs: Vital Signs Temp Pulse Resp BP Pulse Ox 07/28/17 11:16 16 96 07/28/17 08:02 94 07/28/17 07:43 16 94 07/28/17 07:22 97.6 F 77 18 149/77 95 07/28/17 05:00 98.2 F 80 18 147/80 100 07/28/17 04:11 16 94 07/27/17 23:47 18 94 07/27/17 22:48 88 148/69 94 07/27/17 20:01 18 94 07/27/17 19:00 98 F 90 20 171/98 99 Intake and Output 07/28/17 07/28/17 07/28/17 07:59 15:59 23:59 Intake Total 400 / 400 1100 / 1100 Output Total 2700 / 2700 475 / 475 Balance -2300 / -2300 625 / 625 Intake: Oral 400 / 400 1100 / 1100 Output: Urine 2700 / 2700 475 / 475 Other: Meal Lunch Percent of Meal Consumed 100% Stool Size Moderate Stool Consistency soft formed # Voids 4 Weight 205.2 kg Blood Glucose* 203 284 Patient Weight 07/28/17 23:59 Weight 205.2 kg - Lab 07/28/17 03:32 07/28/17 03:32 Most recent lab results Calcium 9.2 mg/dL (8.6-10.3) 07/28/17 03:32 Phosphorus 3.4 mg/dL (2.7-4.5) 07/28/17 03:32 Magnesium 1.9 mg/dL (1.6-2.6) 07/28/17 03:32 Urine Creatinine 106 mg/dL 07/27/17 04:10 Urine Total Protein 44 mg/dL 07/27/17 04:10 - VTE Documentation of Mechanical Device: Intermittent pneumatic compression device Consult Discharge Plan - Plan Instructions: Viral Pneumonia (DC), Viral Pneumonia (GEN), Community-acquired Pneumonia (DC), Community-acquired Pneumonia (GEN), Bacterial Pneumonia (DC), Bacterial Pneumonia (GEN), Pneumonia, Optical Laboratory Manager (GEN) Additional Instructions: Please follow up with your primary care physician within five days after your discharge from the hospital. Please follow up with nephrology within two to four weeks after your discharge from the hospital. Please follow up with cardiology within one week after your discharge from the hospital. Your home medications have been changed as follows: 1. Plavix 75mg once a day has been added 2. Metoprolol 50mg twice a day has been added 3. Lasix has been changed to 40mg once a day 4. Lisinopril and Spironolactone have been discontinued due to your renal funciton. 5. Simvastatin has been discontinued and Atrovastatin once a day has been added 6. Doxycycline 100mg twice a day for 8 more days for UTI has been added. Resume all other medications as prescribed by your primary care physician. Obtain the prescribed lab work prior to your follow up with your primary care physician. Ask your primary care physician about continuation of Lisinopril and Spironolactone. these medications will be restarted once your kidney function improves. Seek medical help immediately if chest pain occurs or if you have difficulty breathing. Referrals: David Méndez MD [Partnered Physician] - 08/01/17 1:45 pm Olegario Guzman DO [Partnered Physician] - Calixto Diego MD [Primary Care Provider] - Prescriptions: Albuterol Sulfate [Albuterol Inhaler] 2 puff IH Q4HR PRN #1 hfa.aer.ad PRN Reason: Shortness Of Breath/Wheezing Atorvastatin [Lipitor] 80 mg PO HS #30 tablet Clopidogrel [Plavix] 75 mg PO DAILY #30 tablet Doxycycline 100 mg PO BID #17 capsule Furosemide [Lasix] 40 mg PO DAILY #30 tab Metoprolol [Lopressor] 50 mg PO BID #60 tablet
== END 2017-07-28 15:56 | disposition home or self-care (01) | DRG 246 ==
LOC: EMEROO 18:40 → 2NENU 18:40 → SUATTDRO 23:04 → 2NENU 23:25
PROVIDERS: ADMIT Student in an Organized Health Care Education/Training Program; ATTEND Internal Medicine